=== PATIENT | male | born 1960 | race Caucasian/White ===

== ENCOUNTER 2016-05-25 13:39 | Outpatient (CLI) | payer MEDICAID, OTHER | END 2016-05-25 13:40 | disposition home or self-care (01) | DX: E11.9 Type 2 diabetes mellitus without complications (principal) ==

== ENCOUNTER 2016-09-07 23:17 | Outpatient (CLI) | payer MEDICAID | END 2016-09-07 23:18 | disposition EMS.NT | LOC: EMS 23:17 | PROVIDERS: ATTEND Surgery | DX: S80.212A Abrasion, left knee, initial encounter (principal); W18.39XA Other fall on same level, initial encounter; Y93.01 Activity, walking, marching and hiking; Y92.008 Other place in unspecified non-institutional (private) residence as the place of occurrence of the external cause ==

== ENCOUNTER 2017-10-19 09:44 | Outpatient (CLI) | payer MEDICAID ==
[2017-10-19 17:45] LABS: BASOPHILS % (AUTO) 0.7 %; EOSINOPHILS # (AUTO) 0.1 10^3/uL (0.0-0.7); EOSINOPHILS % (AUTO) 2.5 %; HGB - HEMOGLOBIN 14.2 g/dL (14.0-18.0); LYMPHOCYTES # (AUTO) 1.5 10^3/uL (1.5-3.5); LYMPHOCYTES % (AUTO) 40.5 %; MEAN CORPUSCULAR HGB CONC 33.9 g/dL (32.0-36.0); MEAN CORPUSCULAR VOLUME 94.4 fL (80.0-94.0); MEAN PLATELET VOLUME 8.3 fL (7.4-11.4); MONOCYTES # (AUTO) 0.4 10^3/uL (0.0-1.0); MONOCYTES % (AUTO) 10.6 %; NEUTROPHILS # (AUTO) 1.7 10^3/uL (1.5-6.6); NEUTROPHILS % (AUTO) 45.7 %; PLT - PLATELET COUNT 220 10^3/uL (130-450); RED BLOOD COUNT 4.43 10^6/uL (4.70-6.10); RED CELL DISTRIBUTION WIDTH 13.5 % (12.0-15.0); WHITE BLOOD COUNT 3.7 x10^3/uL (4.8-10.8)
[2017-10-19 18:12] LABS: ALBUMIN 3.9 g/dL (3.2-5.5); ALBUMIN/GLOBULIN RATIO 1.1 (1.0-2.2); ALKALINE PHOSPHATASE 82 IU/L (42-121); ALT ALANINE AMINOTRANSFERASE 15 IU/L (10-60); AST ASPARTATE AMINOTRANSFERASE 19 IU/L (10-42); BILIRUBIN,TOTAL 0.9 mg/dL (0.2-1.0); BUN - BLOOD UREA NITROGEN 15 mg/dL (6-20); CALCIUM 9.2 mg/dL (8.5-10.3); CARBON DIOXIDE - CO2 28 mmol/L (21-32); CHLORIDE 97 mmol/L (101-111); CHOLESTEROL 286 mg/dL; CREATININE 0.7 mg/dL (0.6-1.2); GFR - MDRD 117 (>89); GLUCOSE 313 mg/dL (70-100); HDL CHOLESTEROL 57 mg/dL; LDL CHOLESTEROL,CALCULATED 190 mg/dL; LDL/HDL RATIO 3.3 (<3.6); SODIUM 132 mmol/L (135-145); TOTAL PROTEIN 7.5 g/dL (6.7-8.2); VLDL CHOLESTEROL 39 mg/dL
[2017-10-19 18:59] LABS: HB2 TOTAL 14.8 g/dL; HEMOGLOBIN A1C 1.61 g/dL; HEMOGLOBIN A1C % 12.1 % (4.6-6.2)
[2017-10-19 19:23] LABS: CRP - C-REACTIVE PROTEIN < 1.0 mg/dL (0-1.0)
== END 2017-10-19 09:45 | disposition home or self-care (01) ==
LOC: LAB.F 09:44
PROVIDERS: ATTEND Nurse Practitioner Family
DX: E11.9 Type 2 diabetes mellitus without complications (principal); L08.9 Local infection of the skin and subcutaneous tissue, unspecified
CPT/HCPCS: 36415; 80053; 80061; 82043; 83036; 83721; 85025; 85651; 86140

== ENCOUNTER 2018-07-04 10:14 | Emergency (ER) | payer OTHER, MEDICAID ==
[2018-07-04 10:34] VITALS: BP 217/113
[2018-07-04] MEDS ORDERED: IBUPROFEN 800 MG TABLET PO STA (11:26)
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
== END 2018-07-04 12:00 | disposition home or self-care (01) ==
LOC: ED 10:14
DX: S39.012A Strain of muscle, fascia and tendon of lower back, initial encounter (principal); V43.62XA Car passenger injured in collision with other type car in traffic accident, initial encounter; Y99.0 Civilian activity done for income or pay; I10 Essential (primary) hypertension; E11.9 Type 2 diabetes mellitus without complications
CPT/HCPCS: 99283; A9270; 1040M

== ENCOUNTER 2019-11-10 15:12 | Outpatient (CLI) | payer MEDICAID ==
[2019-11-10 20:07] LABS: BASOPHILS % (AUTO) 0.8 %; EOSINOPHILS % (AUTO) 0.3 %; HGB - HEMOGLOBIN 14.8 g/dL (14.0-18.0); LYMPHOCYTES # (AUTO) 1.4 10^3/uL (1.5-3.5); LYMPHOCYTES % (AUTO) 37.5 %; MEAN CORPUSCULAR HEMOGLOBIN 31.1 pg (27.0-31.0); MEAN CORPUSCULAR HGB CONC 33.2 g/dL (32.0-36.0); MEAN CORPUSCULAR VOLUME 93.7 fL (80.0-94.0); MEAN PLATELET VOLUME 10.1 fL (7.4-11.4); MONOCYTES # (AUTO) 0.4 10^3/uL (0.0-1.0); MONOCYTES % (AUTO) 11.1 %; NEUTROPHILS # (AUTO) 1.9 10^3/uL (1.5-6.6); PLT - PLATELET COUNT 218 10^3/uL (130-450); RED BLOOD COUNT 4.76 10^6/uL (4.70-6.10); RED CELL DISTRIBUTION WIDTH 12.4 % (12.0-15.0); WHITE BLOOD COUNT 3.8 x10^3/uL (4.8-10.8)
[2019-11-10 20:17] LABS: HEMOGLOBIN A1c% 10.8 % (4.27-6.07)
[2019-11-10 20:30] LABS: ALBUMIN 4.4 g/dL (3.2-5.5); ALBUMIN/GLOBULIN RATIO 1.3 (1.0-2.2); ALKALINE PHOSPHATASE 110 IU/L (42-121); ALT ALANINE AMINOTRANSFERASE 23 IU/L (10-60); AST ASPARTATE AMINOTRANSFERASE 22 IU/L (10-42); BILIRUBIN,TOTAL 0.6 mg/dL (0.2-1.0); BUN - BLOOD UREA NITROGEN 17 mg/dL (6-20); CALCIUM 9.7 mg/dL (8.5-10.3); CARBON DIOXIDE - CO2 26 mmol/L (21-32); CHLORIDE 97 mmol/L (101-111); CHOL/HDL RATIO 5.7 (<5.0); CHOLESTEROL 317 mg/dL; GLUCOSE 444 mg/dL (70-100); HDL CHOLESTEROL 56 mg/dL; LDL CHOLESTEROL,CALCULATED 194 mg/dL; LDL/HDL RATIO 3.5 (<3.6); SODIUM 132 mmol/L (135-145); TOTAL PROTEIN 7.8 g/dL (6.7-8.2); VLDL CHOLESTEROL 67 mg/dL
[2019-11-10 20:31] LABS: CREATININE,URINE 45.6 mg/dL; MICROALBUM/CREATININE RATIO,UR 111.8 ug/mg (<30.0); MICROALBUMIN,URINE 5.1 mg/dL (0-300.0)
== END 2019-11-10 15:13 | disposition home or self-care (01) ==
LOC: LAB.S 15:12
PROVIDERS: ATTEND Family Medicine
DX: I10 Essential (primary) hypertension (principal); E11.9 Type 2 diabetes mellitus without complications
CPT/HCPCS: 36415; 80053; 80061; 82043; 82570; 83036; 83721; 84443; 85025

== ENCOUNTER 2020-06-24 08:00 | Outpatient (CLI) | payer MEDICAID ==
[2020-06-24 20:07] LABS: BASOPHILS % (AUTO) 0.6 %; EOSINOPHILS # (AUTO) 0.1 10^3/uL (0.0-0.7); EOSINOPHILS % (AUTO) 1.1 %; HCT - HEMATOCRIT 41.4 % (42.0-52.0); HGB - HEMOGLOBIN 13.8 g/dL (14.0-18.0); LYMPHOCYTES # (AUTO) 1.8 10^3/uL (1.5-3.5); LYMPHOCYTES % (AUTO) 33.8 %; MEAN CORPUSCULAR HEMOGLOBIN 31.2 pg (27.0-31.0); MEAN CORPUSCULAR HGB CONC 33.3 g/dL (32.0-36.0); MEAN CORPUSCULAR VOLUME 93.7 fL (80.0-94.0); MEAN PLATELET VOLUME 9.9 fL (7.4-11.4); MONOCYTES # (AUTO) 0.6 10^3/uL (0.0-1.0); MONOCYTES % (AUTO) 10.4 %; NEUTROPHILS # (AUTO) 2.8 10^3/uL (1.5-6.6); NEUTROPHILS % (AUTO) 53.7 %; PLT - PLATELET COUNT 279 10^3/uL (130-450); RED BLOOD COUNT 4.42 10^6/uL (4.70-6.10); RED CELL DISTRIBUTION WIDTH 12.8 % (12.0-15.0); WHITE BLOOD COUNT 5.3 x10^3/uL (4.8-10.8)
[2020-06-24 20:31] LABS: CREATININE,URINE 56.5 mg/dL; MICROALBUM/CREATININE RATIO,UR 345.1 ug/mg (<30.0); MICROALBUMIN,URINE 19.5 mg/dL (0-300.0)
[2020-06-24 20:32] LABS: ALBUMIN 4.3 g/dL (3.2-5.5); ALBUMIN/GLOBULIN RATIO 1.2 (1.0-2.2); ALKALINE PHOSPHATASE 91 IU/L (42-121); ALT ALANINE AMINOTRANSFERASE 15 IU/L (10-60); AST ASPARTATE AMINOTRANSFERASE 16 IU/L (10-42); BILIRUBIN,TOTAL 0.7 mg/dL (0.2-1.0); BUN - BLOOD UREA NITROGEN 16 mg/dL (6-20); CALCIUM 9.4 mg/dL (8.5-10.3); CARBON DIOXIDE - CO2 25 mmol/L (21-32); CHLORIDE 100 mmol/L (101-111); CHOL/HDL RATIO 4.5 (<5.0); CHOLESTEROL 292 mg/dL; CREATININE 0.6 mg/dL (0.6-1.2); GFR - MDRD 138 (>89); GLUCOSE 268 mg/dL (70-100); HDL CHOLESTEROL 65 mg/dL; LDL CHOLESTEROL,CALCULATED 203 mg/dL; LDL/HDL RATIO 3.1 (<3.6); POTASSIUM 3.8 mmol/L (3.5-5.0); SODIUM 134 mmol/L (135-145); TRIGLYCERIDES 120 mg/dL; VLDL CHOLESTEROL 24 mg/dL
[2020-06-24 20:33] LABS: ESTIMATED AVERAGE GLUCOSE 258 mg/dL (70-100); HEMOGLOBIN A1c% 10.6 % (4.27-6.07)
[2020-06-24 20:42] LABS: THYROID STIMULATING HORMONE 1.74 uIU/mL (0.34-5.60)
[2020-06-24 20:53] LABS: FOLATE 10.58 ng/mL (5.90 - >24.8)
== END 2020-06-24 23:59 | disposition home or self-care (01) ==
LOC: LAB.S 08:00
PROVIDERS: ATTEND Physician Assistant Medical
DX: I10 Essential (primary) hypertension (principal); E78.5 Hyperlipidemia, unspecified; E11.9 Type 2 diabetes mellitus without complications; F10.10 Alcohol abuse, uncomplicated; Z12.5 Encounter for screening for malignant neoplasm of prostate; R53.83 Other fatigue; H53.9 Unspecified visual disturbance
CPT/HCPCS: 36415; 80053; 80061; 82043; 82570; 82607; 82746; 83036; 83721; 84153; 84443; 85025

== ENCOUNTER 2020-06-24 08:00 | Outpatient (CLI) | payer MEDICAID ==
--- NOTE | 2020-06-24 17:17 | XRAY Report ---
PROCEDURE: Chest 2 View X-Ray INDICATIONS: COUGH TECHNIQUE: 2 view(s) of the chest. COMPARISON: None. FINDINGS: Surgical changes and devices: None. Lungs and pleura: No pleural effusions or pneumothorax. Lungs are clear. Mediastinum: Mediastinal contours are normal. Heart size is normal. Bones and chest wall: No suspicious bony abnormalities. Soft tissues appear unremarkable. IMPRESSION: Normal for age, source of current symptoms is not seen. Reviewed by: Adelso Graham MD on 06/24/2020 5:16 PM PDT Approved by: Adelso Graham MD on 06/24/2020 5:16 PM PDT Station ID: [id number]
== END 2020-06-24 23:59 | disposition home or self-care (01) ==
LOC: DI.S 08:00
PROVIDERS: ATTEND Physician Assistant Medical
DX: R05 Cough (principal); I10 Essential (primary) hypertension; E78.5 Hyperlipidemia, unspecified; E11.9 Type 2 diabetes mellitus without complications; F10.10 Alcohol abuse, uncomplicated; R53.83 Other fatigue; H53.9 Unspecified visual disturbance
CPT/HCPCS: 36415; 80053; 80061; 82043; 82570; 82607; 82746; 83036; 83721; 84153; 84443; 85025

== ENCOUNTER 2020-07-26 13:32 | Outpatient (CLI) | payer MEDICAID ==
[2020-07-26 21:11] LABS: ESTIMATED AVERAGE GLUCOSE 255 mg/dL (70-100); HEMOGLOBIN A1c% 10.5 % (4.27-6.07)
== END 2020-07-26 13:33 | disposition home or self-care (01) ==
LOC: LAB.S 13:32
PROVIDERS: ATTEND Physician Assistant
DX: Z01.812 Encounter for preprocedural laboratory examination (principal); R53.83 Other fatigue; E78.5 Hyperlipidemia, unspecified; E11.9 Type 2 diabetes mellitus without complications
CPT/HCPCS: 36415; 83036

== ENCOUNTER 2022-12-16 12:36 | Outpatient (CLI) | payer MEDICAID | END 2022-12-16 23:59 | disposition critical access hospital (66) | LOC: EMS 12:36 | DX: E11.65 Type 2 diabetes mellitus with hyperglycemia (principal); R10.84 Generalized abdominal pain; R11.2 Nausea with vomiting, unspecified; I48.91 Unspecified atrial fibrillation | CPT/HCPCS: A0425; A0427; A0999 ==

== ENCOUNTER 2022-12-16 13:17 | Inpatient (IN) | payer MEDICAID ==
[2022-12-16] MEDS ORDERED: SODIUM CHLORIDE 0.9% 1,000 ML IV STA ×4 (13:35→15:51)
[2022-12-16 13:48] LABS: BASOPHILS % (AUTO) 0.2 %; HCT - HEMATOCRIT 40.2 % (42.0-52.0); HGB - HEMOGLOBIN 13.9 g/dL (14.0-18.0); LYMPHOCYTES % (AUTO) 8.3 %; MEAN CORPUSCULAR HEMOGLOBIN 31.7 pg (27.0-31.0); MEAN CORPUSCULAR HGB CONC 34.6 g/dL (32.0-36.0); MEAN CORPUSCULAR VOLUME 91.6 fL (80.0-94.0); MEAN PLATELET VOLUME 9.2 fL (7.4-11.4); MONOCYTES # (AUTO) 0.9 10^3/uL (0.0-1.0); MONOCYTES % (AUTO) 8.1 %; NEUTROPHILS # (AUTO) 9.6 10^3/uL (1.5-6.6); NEUTROPHILS % (AUTO) 83.1 %; PLT - PLATELET COUNT 269 10^3/uL (130-450); RED BLOOD COUNT 4.39 10^6/uL (4.70-6.10); RED CELL DISTRIBUTION WIDTH 12.7 % (12.0-15.0); WHITE BLOOD COUNT 11.6 x10^3/uL (4.8-10.8)
[2022-12-16 13:50] LABS: VBG BASE EXCESS -0.5 mmol/L (-2 - +2); VBG HCO3 23.9 mmol/L (23-28); VBG PCO2 38.7 mmHg (41-51); VBG PH 7.409 (7.31-7.41); VBG PO2 39.9 mmHg (25-47); VBG TOTAL CO2 25.1 mmol/L (24-29)
[2022-12-16 13:51] LABS: VBG OXYGEN SATURATION 75.9 % (60-80)
--- NOTE | 2022-12-16 13:57 | ED Physician Documentation ---
PD HPI ABD PAIN - Stated complaint Stated Complaint: ABD PX - Chief complaint Chief Complaint: Abd Pain - History obtained from History obtained from: Patient - History of Present Illness Timing - onset: How many days ago (several days to a week of worse pain esophageal and stomach area with intake. Having vomiting coffee ground material 1-2 days. General weakness.) Timing - duration: Days, Months (he has had some element of gastric pain with eating for months.) Timing - details: Gradual onset, Still present Quality: Cramping, Aching, Pain Location: Epigastric Radiation: Upper back Improved by: No: Eating, Vomiting, Meds (antacid) Worsened by: Eating, Palpation. No: Breathing Associated symptoms: Nausea, Vomiting, Hematemesis (coffee ground), Chest pain (lower substernal). No: Fever, Dysuria, Hematuria Similar symptoms before: Has not had sx before Recently seen: Not recently seen Review of Systems Constitutional: denies: Fever, Chills Nose: denies: Rhinorrhea / runny nose, Congestion Throat: denies: Sore throat Cardiac: reports: Chest pain / pressure. denies: Palpitations (even in the ER with rapid atrial fib, he does not have feeling of fast heart rate.) Respiratory: denies: Cough GI: reports: Abdominal Pain (upper), Nausea, Vomiting, Hematemesis. denies: Abdominal Swelling, Bloody / black stool : denies: Dysuria, Frequency PD PAST MEDICAL HISTORY - Past Medical History Endocrine/Autoimmune: Type 2 diabetes - Past Surgical History Past Surgical History: No - Present Medications Home Medications: Ambulatory Orders Medication Instructions Recorded Confirmed Losartan/Hydrochlorothiazide 1 each PO DAILY 12/17/22 12/17/22 [Losartan-Hctz 100-12.5 mg Tab] Metformin HCl [Metformin ER 1,000 mg PO DAILY 12/17/22 12/17/22 Osmotic] Prednisolone Acetate [Pred Mild] 1 drops .ROUTE TID 12/17/22 12/17/22 - Allergies Allergies/Adverse Reactions: Allergies Allergy/AdvReac Type Severity Reaction Status Date / Time No Known Drug Allergies Allergy Verified 07/04/18 10:29 - Living Situation Living Situation: reports: Alone Living Arrangement: reports: At home - Social History Does the pt smoke?: No Smoking Status: Never smoker Does the pt drink ETOH?: Yes ETOH Use: Beer (5-6 daily along with rum regularly) Does the pt have substance abuse?: No - Immunizations Immunizations are current?: Yes PD ED PE NORMAL - Vitals Vital signs reviewed: Yes - General General: Alert and oriented X 3, Well developed/nourished, Other (appears in pain and with ememsis in ER of coffeeground watery fluid. No red blood. ) - HEENT HEENT: Pharynx benign - Neck Neck: Supple, no meningeal sign, No adenopathy - Cardiac Cardiac: RRR (initially normal but went into rapid tachycardia early in ER stay. ), No murmur - Respiratory Respiratory: Clear bilaterally - Abdomen Abdomen: Normal bowel sounds, Non distended, Other (tender with guarding epigastric area. NO distension. SOme percussion and rebound in upper abd. Lower not tender. ) - Rectal Rectal: Deferred - Back Back: No CVA TTP - Derm Derm: Normal color, Warm and dry - Extremities Extremities: Normal ROM s pain, No edema, No calf tenderness / cord Results - Vitals Vitals: Vital Signs - 24 hr 12/16/22 12/16/22 12/16/22 13:24 14:46 14:47 Temperature 36.3 C L Heart Rate 92 152 H 145 H Respiratory 16 18 18 Rate Blood Pressure 154/88 H 110/69 140/70 H O2 Saturation 97 99 98 12/16/22 12/16/22 12/16/22 15:51 16:07 17:00 Temperature Heart Rate 77 76 78 Respiratory 18 18 19 Rate Blood Pressure 126/76 126/76 126/75 O2 Saturation 98 100 99 12/16/22 12/16/22 17:30 18:00 Temperature Heart Rate 80 77 Respiratory 20 19 Rate Blood Pressure 136/60 H 121/68 O2 Saturation 100 100 Oxygen O2 Source Room air - EKG (time done) 13:22 EKG releavant findings:: EKG personally interpreted by author of this note. Relevant findings are: Rate: Rate (enter#) (129) Rhythm: Sinus tachycardia (with PVCs) Garrison: Normal Intervals: Normal VT QRS: Normal Ischemia: Normal ST segments. No: ST elevation c/w ischemia, ST depression 13:33 EKG releavant findings:: EKG personally interpreted by author of this note. Relevant findings are: Rate: Rate (enter#) (156) Rhythm: Atrial fibrillation Ischemia: Normal ST segments, Non specific changes. No: ST elevation c/w ischemia, ST depression Compare to prior EKG: Changed from prior EKG - Labs Labs: Laboratory Tests 12/16/22 12/16/22 12/16/22 13:31 13:42 13:42 WBC 11.6 H RBC 4.39 L Hgb 13.9 L Hct 40.2 L MCV 91.6 MCH 31.7 H MCHC 34.6 RDW 12.7 Plt Count 269 MPV 9.2 Neut # (Auto) 9.6 H Lymph # (Auto) 1.0 L Yell # (Auto) 0.9 Eos # (Auto) 0.0 Baso # (Auto) 0.0 Absolute Nucleated RBC 0.00 Nucleated RBC % 0.0 PT 12.5 INR 1.1 APTT 25.2 VBG pH VBG pCO2 VBG pO2 VBG HCO3 VBG Total CO2 VBG O2 Saturation VBG Base Excess Sodium Potassium Chloride Carbon Dioxide Anion Gap BUN Creatinine Estimated GFR (MDRD) Glucose POC Whole Bld Glucose 495 H Estimat Average Glucose Hemoglobin A1c % Calcium Magnesium Total Bilirubin AST ALT Alkaline Phosphatase Troponin I High Sens B-Natriuretic Peptide Total Protein Albumin Globulin Albumin/Globulin Ratio Lipase Urine Color Urine Clarity Urine pH Ur Specific Edison Urine Protein Urine Glucose (UA) Urine Ketones Urine Occult Blood Urine Nitrite Urine Bilirubin Urine Urobilinogen Ur Leukocyte Esterase Ur Microscopic Review Urine Culture Comments Urine Opiates Screen Ur Oxycodone Screen Urine Methadone Screen Ur Propoxyphene Screen Ur Barbiturates Screen Ur Tricyclics Screen Ur Phencyclidine Scrn Ur Amphetamine Screen U Methamphetamines Scrn U Benzodiazepines Scrn Urine Cocaine Screen U Cannabinoids Screen Ethyl Alcohol Serum Ketones 12/16/22 12/16/22 12/16/22 13:42 13:42 13:45 WBC RBC Hgb Hct MCV MCH MCHC RDW Plt Count MPV Neut # (Auto) Lymph # (Auto) Yell # (Auto) Eos # (Auto) Baso # (Auto) Absolute Nucleated RBC Nucleated RBC % PT INR APTT VBG pH 7.409 VBG pCO2 38.7 L VBG pO2 39.9 VBG HCO3 23.9 VBG Total CO2 25.1 VBG O2 Saturation 75.9 VBG Base Excess -0.5 Sodium 135 Potassium 4.0 Chloride 92 L Carbon Dioxide 26 Anion Gap 17.0 H BUN 39 H Creatinine 1.0 Estimated GFR (MDRD) 76 L Glucose 514 H* POC Whole Bld Glucose Estimat Average Glucose Hemoglobin A1c % Calcium 9.7 Magnesium Total Bilirubin 0.7 AST 11 ALT 8 L Alkaline Phosphatase 110 Troponin I High Sens B-Natriuretic Peptide 80 Total Protein 7.5 Albumin 4.1 Globulin 3.4 Albumin/Globulin Ratio 1.2 Lipase 10 L Urine Color Urine Clarity Urine pH Ur Specific Edison Urine Protein Urine Glucose (UA) Urine Ketones Urine Occult Blood Urine Nitrite Urine Bilirubin Urine Urobilinogen Ur Leukocyte Esterase Ur Microscopic Review Urine Culture Comments Urine Opiates Screen Ur Oxycodone Screen Urine Methadone Screen Ur Propoxyphene Screen Ur Barbiturates Screen Ur Tricyclics Screen Ur Phencyclidine Scrn Ur Amphetamine Screen U Methamphetamines Scrn U Benzodiazepines Scrn Urine Cocaine Screen U Cannabinoids Screen Ethyl Alcohol < 10.0 Serum Ketones SMALL H 12/16/22 12/16/22 12/16/22 13:45 16:01 16:06 WBC RBC Hgb Hct MCV MCH MCHC RDW Plt Count MPV Neut # (Auto) Lymph # (Auto) Yell # (Auto) Eos # (Auto) Baso # (Auto) Absolute Nucleated RBC Nucleated RBC % PT INR APTT VBG pH VBG pCO2 VBG pO2 VBG HCO3 VBG Total CO2 VBG O2 Saturation VBG Base Excess Sodium Potassium Chloride Carbon Dioxide Anion Gap BUN Creatinine Estimated GFR (MDRD) Glucose POC Whole Bld Glucose 394 H Estimat Average Glucose Hemoglobin A1c % Calcium Magnesium 2.2 Total Bilirubin AST ALT Alkaline Phosphatase Troponin I High Sens 12.4 B-Natriuretic Peptide Total Protein Albumin Globulin Albumin/Globulin Ratio Lipase Urine Color YELLOW Urine Clarity CLEAR Urine pH 5.5 Ur Specific Edison 1.010 Urine Protein NEGATIVE Urine Glucose (UA) >=1000 H Urine Ketones >=80 H Urine Occult Blood TRACE-INTA Urine Nitrite NEGATIVE Urine Bilirubin NEGATIVE Urine Urobilinogen 0.2 (NORMAL) Ur Leukocyte Esterase NEGATIVE Ur Microscopic Review NOT INDICATED Urine Culture Comments NOT INDICATED Urine Opiates Screen NEGATIVE Ur Oxycodone Screen NEGATIVE Urine Methadone Screen NEGATIVE Ur Propoxyphene Screen NEGATIVE Ur Barbiturates Screen NEGATIVE Ur Tricyclics Screen NEGATIVE Ur Phencyclidine Scrn NEGATIVE Ur Amphetamine Screen NEGATIVE U Methamphetamines Scrn NEGATIVE U Benzodiazepines Scrn NEGATIVE Urine Cocaine Screen NEGATIVE U Cannabinoids Screen NEGATIVE Ethyl Alcohol Serum Ketones 12/16/22 18:08 WBC RBC Hgb Hct MCV MCH MCHC RDW Plt Count MPV Neut # (Auto) Lymph # (Auto) Yell # (Auto) Eos # (Auto) Baso # (Auto) Absolute Nucleated RBC Nucleated RBC % PT INR APTT VBG pH VBG pCO2 VBG pO2 VBG HCO3 VBG Total CO2 VBG O2 Saturation VBG Base Excess Sodium Potassium Chloride Carbon Dioxide Anion Gap BUN Creatinine Estimated GFR (MDRD) Glucose POC Whole Bld Glucose Estimat Average Glucose 318 H Hemoglobin A1c % 12.7 H Calcium Magnesium Total Bilirubin AST ALT Alkaline Phosphatase Troponin I High Sens B-Natriuretic Peptide Total Protein Albumin Globulin Albumin/Globulin Ratio Lipase Urine Color Urine Clarity Urine pH Ur Specific Edison Urine Protein Urine Glucose (UA) Urine Ketones Urine Occult Blood Urine Nitrite Urine Bilirubin Urine Urobilinogen Ur Leukocyte Esterase Ur Microscopic Review Urine Culture Comments Urine Opiates Screen Ur Oxycodone Screen Urine Methadone Screen Ur Propoxyphene Screen Ur Barbiturates Screen Ur Tricyclics Screen Ur Phencyclidine Scrn Ur Amphetamine Screen U Methamphetamines Scrn U Benzodiazepines Scrn Urine Cocaine Screen U Cannabinoids Screen Ethyl Alcohol Serum Ketones - Rads (name of study) chest xray Relevant Findings:: Prelim report reviewed, EMP independent interpretation of test (no acute findings) abd/pelvic CT Relevant Findings:: Prelim report reviewed (inflammation distal esophagus and gastric lining. Pancreas normal. Normal liver. ), EMP independent interpretation of test PD Medical Decision Making - ED course Complexity details: reviewed results, re-evaluated patient, considered differential (upper abd pain with history of regular alcohol use. No hstior of liver disease but not evaluatted/seen by providers regularly. No history of diabetes nor heart problems/irregular heart rate. Has multiple newly identified processes here (atrial fib, diabetes, gastritis).), d/w patient, d/w device sales consultant (talked with Dr. Saucedo, contact lens edge buffer for surgery, who can consult if needed by Hospitalist. Would consider EGD appropriate. Talked with Hospitalist who will admit the patient. ) Social Determinants of Health: does not seek regular health care. History of regular alcohol use so presume will have some withdarwal. Consider some of the nasuea, tachycardia, abd pain augmented by withdrawaal as well, so treated with ativan as well as pain meds and antiemetics. Drug Therapy Requiring Monitoring for Toxicity: IV fluids, antiemetics and particularly IV diltiazem for tachyarrhythmia. Monitoring of heart rate and BP response in light of vomiting and likely dehydration concurrently. ED course: The patient presented with upper abdominal pain for several weeks that has increased over the last few days and now vomiting with any attempted oral intake the last day or 2. Has noted coffee-ground material. No bright red blood. History of regular alcohol use with 5-6 beers and some rum daily. No history of liver disease jaundice nor pancreatitis. No history of coronary disease no irregular heartbeats that he is aware. He denies diabetes. Here in the ER his initial vital signs show tachycardia with PVCs but then soon after into the department he was noted to go to a fast regular rhythm approximately 1 50-1 60 consistent with atrial fibrillation. He did not have any chest discomfort with it and did not feel any palpitations. Blood pressure was good. With I therefore felt slowing it with medication would be appropriate first try. Concern was with the emesis and some coffee-ground material. He was given Protonix and famotidine IV as well as some IV fluids and ondansetron. He was given diltiazem IV with slowing of the heart rate and subsequent converted back to sinus rhythm with that. His blood count was pretty good with a hemoglobin of 13. Lipase was only 10. LFTs were normal. No signs of pancreatitis. He subsequently did have a CT scan to evaluate the abdomen. It did show esophagitis and gastritis. No free air no free fluid. No signs of pancreatitis nor cirrhosis. A chest x-ray also was done which did not show any infiltrates. No signs of congestive failure with a fairly normal BNP and a negative troponin. His blood sugar was elevated at approximately 500s and on blood test he did have ketones but his pH on venous blood gas was good at 7.40. Again no history of diabetes. The patient did have a decrease in his emesis and was not vomiting anymore. He took sips of water without any emesis but it did cause pain significantly. I think he will not be able to maintain his oral intake and hydration and will likely have ongoing problems plus he does have evidence for some gastric bleeding with coffee-ground emesis. I think he needs evaluating for withdrawal as well as ongoing pain and the ability to maintain hydration orally. He also has apparent new onset diabetes. His blood sugar decreased to 360 with IV fluids. We can give a single bolus dose of insulin. He is not ketotic versus correction he is not acidotic and only small ketones so I did not see need to start an insulin drip at this time. Bolus dosing seems like it can be appropriate. I did talk with the hospitalist who agreed to admit the patient to the hospital. At time of admission he is stable without vomiting, good vital signs, getting IV fluids, resting. Heart rhythm sinus below 100 rate. - Critical Care Time(min): 45 Comments: newly diagnosed diabetes with ketosis. Paroxysmal atrial fib requiring IV medications for treatment. Acute gastritis in alcoholic with early withdrawal. Multiple medical issues concurrent. Time Includes: Direct patient care, Reassess patient, Document care, Coordinate care, Medical consult Procedures excluded from critical care time: EKG Departure - Departure Disposition: 66 [facility] DC/Xfer Clinical Impression: Diabetes mellitus, new onset, Nausea and vomiting, Alcohol use disorder, Paroxysmal atrial fibrillation, Upper abdominal pain, Left kidney mass Acute gastritis Qualifiers: Gastritis type: alcoholic Condition: Stable Record reviewed to determine appropriate education?: Yes Discharge Date/Time: 12/16/22 19:20
[2022-12-16 13:58] LABS: KETONES, SERUM (ACETEST) SMALL (NEGATIVE)
[2022-12-16 14:02] LABS: PARTIAL THROMBOPLASTIN TIME 25.2 secs (24.9-33.3)
[2022-12-16 14:06] LABS: ALBUMIN 4.1 g/dL (3.2-5.5); ETOH - ETHANOL < 10.0 mg/dL; INR 1.1 (0.8-1.2); LIPASE 10 U/L (11-82); PT - PROTHROMBIN TIME 12.5 secs (9.9-12.6)
[2022-12-16] MEDS ORDERED: diltiaZEM INJ 5 MG/ML VIAL IVP STA ×2 (14:16→15:05)
[2022-12-16] MEDS ORDERED: FAMOTIDINE 20 MG/2 ML VIAL IVP STA (14:17)
[2022-12-16] MEDS ORDERED: ONDANSETRON 4 MG/2 ML VIAL IVP STA (14:17)
[2022-12-16 14:19] LABS: ALBUMIN/GLOBULIN RATIO 1.2 (1.0-2.2); ALKALINE PHOSPHATASE 110 IU/L (42-121); ALT ALANINE AMINOTRANSFERASE 8 IU/L (10-60); AST ASPARTATE AMINOTRANSFERASE 11 IU/L (10-42); BILIRUBIN,TOTAL 0.7 mg/dL (0.2-1.0); BUN - BLOOD UREA NITROGEN 39 mg/dL (6-20); CALCIUM 9.7 mg/dL (8.5-10.3); CARBON DIOXIDE - CO2 26 mmol/L (21-32); CHLORIDE 92 mmol/L (101-111); GFR - MDRD 76 (>89); GLUCOSE 514 mg/dL (74-104); SODIUM 135 mmol/L (135-145); TOTAL PROTEIN 7.5 g/dL (6.4-8.9)
--- NOTE | 2022-12-16 14:45 | XRAY Report ---
PROCEDURE: Chest 1 View X-Ray INDICATIONS: chest pain TECHNIQUE: One view of the chest was acquired. COMPARISON: Chest x-ray 06/24/2020. FINDINGS: Surgical changes and devices: None. Lungs and pleura: No pleural effusions or pneumothorax. Lungs are clear. Mediastinum: Mediastinal contours appear normal. Heart size is normal. Bones and chest wall: No suspicious bony lesions. Overlying soft tissues appear unremarkable. IMPRESSION: No acute cardiopulmonary process. Reviewed by: Bharat Landaverde MD on 12/16/2022 2:44 PM PDT Approved by: Bharat Landaverde MD on 12/16/2022 2:44 PM PDT Station ID: [id number]
[2022-12-16 14:47] LABS: MAGNESIUM 2.2 mg/dL (1.7-2.3); TROPONIN I HIGH SENSITIVITY 12.4 ng/L (2.3-19.7)
--- OUTSIDE RECORDS SUMMARY | 2022-12-16 14:49 | EXTERNAL MEDICAL SUMMARY RPT | Continuity of Care Document ---
Author Name Unknown Address [address] [place] [address] Phone Organization [facility] Address [address] [place] [address] Phone Care Team Providers Care Geology Technician Name Role Phone Unavailable Unavailable Unavailable Latrice, Provider Unavailable Unavailable Problems date description facility 2022-12-16 00:00 Gambling [facility] 2022-12-16 00:00 Diabetes mellitus wi thout mention of complication, type II or unspecified type, not stated as uncontrolled [facility] 2022-12-16 00:00 Depressive disorder, not elsewhere classified [facility] 2022-12-16 00:00 Depressive disorder [facility] 2022-12-16 00:00 History of alcohol abuse [facility] 2022-12-16 00:00 Type 2 diabetes mellitus [facility] 2022-12-16 00:00 Type 2 diabetes james itus without complications [facility] 2022-12-16 00:00 Major depressive dis order, single episode, unspecified [facility] 2022-12-16 00:00 Personal history of alcoholism [facility] 2022-12-16 00:00 Gambling and betting [facility] 2022-12-16 00:00 Personal history of other mental and behavioral disorders [facility] [place] Results/Labs test date facility value unit notes Social History date description facility
[2022-12-16] MEDS ORDERED: LORazepam 2 MG/ML VIAL IVP STA (15:05)
[2022-12-16] MEDS ORDERED: iohexoL-300 100 ML VIAL IVP ONE (15:53)
[2022-12-16 16:24] LABS: MUDS CUTOFF CONCENTRATIONS CUTOFF CONC BELOW:
[2022-12-16 16:27] LABS: BILIRUBIN,URINE NEGATIVE (NEGATIVE); GLUCOSE, URINE (UA) >=1000 mg/dL (NEGATIVE); KETONES,URINE (UA) >=80 mg/dL (NEGATIVE); LEUKOCYTE ESTERASE, URINE NEGATIVE (NEGATIVE); NITRITE,URINE NEGATIVE (NEGATIVE); OCCULT BLOOD,URINE TRACE-INTA (NEGATIVE); PH,URINE 5.5 PH (5.0-7.5); PROTEIN,URINE NEGATIVE (NEGATIVE); UROBILINOGEN,URINE 0.2 (NORMAL) E.U./dL (NORMAL)
[2022-12-16 16:28] LABS: CLARITY,URINE CLEAR (CLEAR)
[2022-12-16 16:37] LABS: AMPHETAMINE SCREEN,URINE NEGATIVE (NEGATIVE); BARBITURATE SCREEN,UR NEGATIVE (NEGATIVE); BENZODIAZEPINES SCREEN, URINE NEGATIVE (NEGATIVE); COCAINE SCREEN URINE NEGATIVE (NEGATIVE); METHADONE SCREEN, URINE NEGATIVE (NEGATIVE); METHAMPHETAMINES SCREEN, URINE NEGATIVE (NEGATIVE); OPIATE SCREEN, URINE NEGATIVE (NEGATIVE); OXYCODONE SCREEN, URINE NEGATIVE (NEGATIVE); PROPOXYPHENE SCREEN, URINE NEGATIVE (NEGATIVE); THC CANNABINOID SCREEN, URINE NEGATIVE (NEGATIVE); TRICYCLIC ANTIDEPRESSANT,URINE NEGATIVE (NEGATIVE)
--- NOTE | 2022-12-16 16:48 | CT Report ---
PROCEDURE: ABDOMEN/PELVIS W INDICATIONS: upper abd pain for weeks, worsening CONTRAST: 100mL Omni 300 TECHNIQUE: After the administration of intravenous contrast, 5 mm thick sections acquired from the diaphragms to the symphysis. 5 mm thick coronal and sagittal reformats were acquired. For radiation dose reducti on, the following was used: automated exposure control, adjustment of mA and/or kV according to donald ent size. COMPARISON: None FINDINGS: Image quality: Excellent. Lung bases and heart: The lung bases are unremarkable. Mild coronary calcifications. Patulous distal esophagus with small fluid and wall thickening. Liver: No solid mass. Gallbladder and biliary tree: No radiopaque stones or wall thickening. No biliary dilation. Spleen: No splenomegaly. Pancreas: No pancreatic ductal dilation. Adrenals: No adrenal nodule. Kidneys and ureters: No hydronephrosis. No renal cystic lesion which requires follow up. There is a 1 .5 cm soft tissue attenuation nodule at the superior pole of the left kidney.. Bowel and peritoneum: Small hiatal hernia. The stomach is distended. No bowel distension. No patholog ic free fluid. Lymph nodes: No central or retroperitoneal adenopathy. Vessels: No infrarenal aortic aneurysm. Atherosclerotic vascular calcifications. PELVIS Reproductive organs: Unremarkable. Bladder: No abnormal wall thickening. The urinary bladder is distended. Pelvic lymph nodes: No pelvic adenopathy by size criteria. Bones: No aggressive osseous abnormality. Degenerative changes of the spine. Other: Left inguinal hernia with soft tissue attenuation, possibly left testicle within the inguinal hernia.. IMPRESSION: 1.Patulous distal esophagus with small fluid and wall thickening, correlate for esophagitis. 2.The stomach is distended, nonspecific and may be related to gastritis, gastric obstruction is thoug ht to be less likely. 3.There is a 1.5 cm soft tissue attenuation lesion at the superior pole the left kidney, malignancy i s not excluded. Recommend nonemergent ultrasound or renal protocol CT or MRI for further evaluation. 4.Left renal hernia with soft tissue attenuation, possibly representing the left testicle within ingu inal hernia. Recommend correlation with physical exam. Scrotal ultrasound can be obtained for further evaluation if clinically indicated. Reviewed by: Bharat Landaverde MD on 12/16/2022 4:47 PM PDT Approved by: Bharat Landaverde MD on 12/16/2022 4:47 PM PDT Station ID: [id number]
[2022-12-16] MEDS ORDERED: INSULIN REGULAR HUMAN 300 UNIT/3 ML VIAL IVP STA (17:41)
[2022-12-16] MEDS ORDERED: PANTOPRAZOLE 40 MG VIAL IVP STA (17:45)
[2022-12-16] MEDS ORDERED: HYDROmorphone 0.5 MG/0.5 ML SYRINGE IVP PRN (18:26)
[2022-12-16] MEDS ORDERED: LORazepam 2 MG/ML VIAL IVP PRN (18:33)
--- NOTE | 2022-12-16 18:41 | HISTORY & PHYSICAL EXAMINATION ---
Chief Complaint - Chief Complaint Chief Complaint: abd pain 2 weeks, N/V 2 days History of Present Illness - Admitted From Admitted From:: ED - History Obtained From History obtained from: ED provider and the patient - History of Present Illness HPI Comment/Other: This is a 62-year-old male of background who states he takes no meds, has a history of alcohol abuse; he admits to drinking 6 beers/day and 3-4 rum and Coke drinks per day. He presented to the ER today with complaints of 2 weeks of vague abdominal pain, worse with eating, then 2 days of nausea and v omiting and no liquids would stay down today. He reported occasional coffee ground emesis these past 2 days and then had witnessed coffee-ground emesis in the ER. He underwent CT of the abdomen pelvis that showed inflammation of the distal esophagus and gastritis present, no evidence of esophageal varices. His initial heart rhythm was sinus with monomorphic, non-sustained VTach (4-beats) and then he went into atrial flutter at a rate of 160. He was given diltiazem push and converted back to sinus rhythm. His labs were remarkable for a serum glucose of 514, which is new onset of diabetes mellitus. He has a normal serum pH of 7.49, but small serum ketones present. Lipase 10. Normal transaminases and INR and MCV. Hgb 13.9. Troponin 12.4. The patient was given IV insulin and the next glucose came down to 394. The description of the pancreas on the abdominal CT image was unremarkable, with no phlegmon, necrosis or pancreatitis. The ED provider spoke to me about this patient. He will be admitted to the ICU in critical condition. History - Past Medical History Cardiovascular: reports: None Respiratory: reports: None Neuro: reports: None Endocrine/Autoimmune: reports: None GI: reports: None AERODYNAMICS PROFESSOR: reports: None : reports: None HEENT: reports: Chronic vision loss (Had several "eye surgeries".) Psych: reports: None Musculoskeletal: reports: None Derm: reports: None - Family & Social History Family History Comment/Other: He has no natural children. Living arrangement: At home Living Situation: With friend(s) Social History Notes: He lives with an elderly female who is 82, she is his friend not his relative. The patient used to work at the [employer]. He can no longer drive because of poor eyesight. He never smoked. He drinks alcohol daily: 6 beers per day and 4 rum and Coke cocktails per day. He has possibly had alcohol withdrawal at home in the past. - Substance History Use: Uses substance without health or social issues: Alcohol - POLST Patient has POLST: No Meds/Allgy - Home Medications Home Medications: Ambulatory Orders Medication Instructions Recorded Confirmed Losartan/Hydrochlorothiazide 1 each PO DAILY 12/17/22 12/17/22 [Losartan-Hctz 100-12.5 mg Tab] Metformin HCl [Metformin ER 1,000 mg PO DAILY 12/17/22 12/17/22 Osmotic] Prednisolone Acetate [Pred Mild] 1 drops .ROUTE TID 12/17/22 12/17/22 - Allergies Allergies/Adverse Reactions: Allergies Allergy/AdvReac Type Severity Reaction Status Date / Time No Known Drug Allergies Allergy Verified 07/04/18 10:29 Review of Systems - Constitutional Constitutional: reports: Other (He denies taking any meds) - Eyes Eyes: reports: Vision loss - Gastrointestinal Gastrointestinal: reports: Abdominal pain, Nausea, Vomiting, Coffee grounds emesis - Endocrine Endocrine: reports: Other (Stated he is "surprised he has Diabetes".) - All Other Systems All Other Systems: reports: Reviewed and negative, Other (Hiccups) Exam - Vital Signs Reviewed Vital Signs: Yes Vital Signs: Vital Signs x48h Temp Pulse Resp BP Pulse Ox 12/16/22 17:00 78 19 126/75 19 L 12/16/22 16:07 76 18 126/76 100 12/16/22 15:51 77 18 126/76 98 12/16/22 14:47 145 H 18 140/70 H 98 12/16/22 14:46 152 H 18 110/69 99 12/16/22 13:24 36.3 C L 92 16 154/88 H 97 - Physical Exam General Appearance: positive: Moderate distress (from hiccups), Other (Disheveled.) Eyes Bilateral: positive: Normal inspection, EOMI, Other (No icterus) ENT: positive: Dry mucous membranes, Other (Poor dentition: many missing front t eeth. Bloody emesis dried, seenon lips and L cheek.) Neck: positive: Nml inspection, No JVD Respiratory: positive: No respiratory distress, Breath sounds nml Cardiovascular: positive: Regular rate & rhythm, No murmur Abdomen: positive: Non-tender, Nml bowel sounds, No distention Skin: positive: Warm, Dry, Other ((+) skin tenting) Extremities: positive: Non-tender, No pedal edema, Other (Dirt under fingernails) Neurologic/Psychiatric: positive: Oriented x3, Motor nml, Other (No tremor, no nystagmus) Conclusion/Plan - Problem List (1) DKA (diabetic ketoacidosis) Conclusion/Plan: GlucoseHe presents with over 500 and serum ketones present but he is not acidotic. He has a normal lipase level and a normal-appearing pancreas by CT imaging. Plan: Admit to the ICU and start DKA protocol Start insulin drip Follow his ketones until they are negative Start normal saline, changing to IV fluids with D5 when glucose is under 200 (2) Acute gastritis Conclusion/Plan: Likely related to his alcohol abuse Plan: Start the patient on Protonix 40 mg IV twice daily Start oral Carafate 4 times daily Follow his hemoglobin daily or every 12 hours Transfuse if hemoglobin under 7 Qualifiers: Gastritis type: alcoholic (3) UGI bleed Conclusion/Plan: As in #2 (4) Alcohol abuse Conclusion/Plan: The patient stated he drinks 6 beers a day plus several shots of rum. His liver function tests show normal LFTs, MCV and INR. Plan: Begin the patient on high-dose ICU-protocol CIWA scoring with as needed Ativan Begin IV banana bag hydration When he is medically clear will request social work consult regarding alcohol abuse counseling and resources for help (5) Diabetes mellitus, new onset Conclusion/Plan: This is a new diagnosis of diabetes mellitus for this patient Plan: Treat for DKA as above He will need diabetic teaching, nutrition consult, and probably initiate oral meds when he is out of DKA Await his A1c result (6) V-tach Conclusion/Plan: A 4 beat run of wide-complex monomorphic tachycardia seen on his resting EKG, this is consistent with V. tach This is likely related to his electrolyte abnormalities or he may have an alcoholic cardiomyopathy predisposing him to V. tach Plan: Placed on insurance sales supervisor potassium, calcium and magnesium and replace if low We will also check his troponin now and in several hours and in the morning. Obtain an Echocardiogram (7) Atrial flutter with rapid ventricular response Conclusion/Plan: There is no prior history of atrial fib or flutter in his EMR. We do not know his cardiac status as far as a possible alcoholic cardiomyopathy. Plan: Check troponins x2 to rule out ACS as the cause Check T4 and TSH to rule out hyperthyroidism Obtain an Echo to rule out cardiomyopathy and/or enlarged atria The patient cannot currently receive anticoagulants for stroke prophylaxis because of his active GI bleed We will use either diltiazem pushes, beta-marilu doses or he may need a diltiazem drip for rate control, if this RVR recurs - Lab Results Fish Bones: 12/17/22 01:11 12/17/22 04:54 - Diagnostic Imaging Results Diagnostic Imaging Results: positive: Final report reviewed - Other Other Results/Comments: Attestation: The patient is expected to be hospitalized for greater than 2 midnights and is expected to be discharged or transferred to another facility within 96 hours: Yes
[2022-12-16 18:58] LABS: ALBUMIN 3.5 g/dL (3.2-5.5); ALBUMIN/GLOBULIN RATIO 1.3 (1.0-2.2); ALKALINE PHOSPHATASE 92 IU/L (42-121); ALT ALANINE AMINOTRANSFERASE 6 IU/L (10-60); AST ASPARTATE AMINOTRANSFERASE 9 IU/L (10-42); BILIRUBIN,TOTAL 0.5 mg/dL (0.2-1.0); BUN - BLOOD UREA NITROGEN 30 mg/dL (6-20); CALCIUM 8.6 mg/dL (8.5-10.3); CARBON DIOXIDE - CO2 24 mmol/L (21-32); CHLORIDE 106 mmol/L (101-111); CREATININE 0.7 mg/dL (0.6-1.3); ETOH - ETHANOL < 10.0 mg/dL; GFR - MDRD 115 (>89); GLUCOSE 296 mg/dL (74-104); MAGNESIUM 2.1 mg/dL (1.7-2.3); SODIUM 141 mmol/L (135-145); TOTAL PROTEIN 6.2 g/dL (6.4-8.9)
[2022-12-16] MEDS ORDERED: INSULIN REGULAR IN 0.9 % NS 100 UNIT/100 ML BAG IV SCH (19:00)
[2022-12-16 19:03] LABS: KETONES, SERUM (ACETEST) SMALL (NEGATIVE)
[2022-12-16 20:59] LABS: KETONES, SERUM (ACETEST) SMALL (NEGATIVE)
[2022-12-16 21:01] LABS: ESTIMATED AVERAGE GLUCOSE 318 mg/dL (70-100); HEMOGLOBIN A1c% 12.7 % (4.27-6.07)
[2022-12-16 21:13] LABS: BUN - BLOOD UREA NITROGEN 30 mg/dL (6-20); CALCIUM 8.5 mg/dL (8.5-10.3); CARBON DIOXIDE - CO2 23 mmol/L (21-32); CHLORIDE 107 mmol/L (101-111); CREATININE 0.7 mg/dL (0.6-1.3); GFR - MDRD 115 (>89); GLUCOSE 270 mg/dL (74-104); POTASSIUM 4.1 mmol/L (3.5-4.5); SODIUM 140 mmol/L (135-145)
[2022-12-16] MEDS: ONDANSETRON 4 MG/2 ML VIAL IVP PRN (21:15)
[2022-12-16] MEDS ORDERED: POTASSIUM CHLOR 10 MEQ/100 ML 10 MEQ/100 ML BAG IV ONE ×2 (21:46→23:00)
[2022-12-16] MEDS: PANTOPRAZOLE 40 MG VIAL IVP SCH (22:17)
[2022-12-16] MEDS: SUCRALFATE 1 GM/10 ML UDC PO SCH (22:17)
[2022-12-16] MEDS: diltiaZEM INJ 5 MG/ML VIAL IVP SCH (22:18)
[2022-12-16] MEDS: DEXTROSE 5%-0.9% NACL 1,000 ML IV SCH (22:35)
[2022-12-17 00:05] LABS: CALCIUM 8.4 mg/dL (8.5-10.3); CREATININE 0.6 mg/dL (0.6-1.3); POTASSIUM 3.4 mmol/L (3.5-4.5)
[2022-12-17] MEDS: PROCHLORPERAZINE 10 MG/2 ML VIAL IVP PRN (00:21)
[2022-12-17] MEDS: SODIUM CHLORIDE FLUSH 0.9% 10 ML SYRINGE IVP SCH ×3 (00:46→18:59)
[2022-12-17] MEDS ORDERED: METOPROLOL 5 MG/5 ML VIAL IVP PRN (00:58)
[2022-12-17] MEDS ORDERED: POTASSIUM PHOSPHATE 15 MMOL in SODIUM CHLORIDE 0.9% 250 ML IV ONE (01:11)
[2022-12-17 01:17] LABS: CALCIUM, IONIZED 1.12 mmol/L (1.15-1.33); VBG PH 7.463 (7.31-7.41)
[2022-12-17 01:17] LABS: HCT - HEMATOCRIT 32.3 % (42.0-52.0)
[2022-12-17 01:21] LABS: MAGNESIUM 1.9 mg/dL (1.7-2.3)
[2022-12-17 01:24] LABS: KETONES, SERUM (ACETEST) NEGATIVE (NEGATIVE)
[2022-12-17] MEDS ORDERED: diltiaZEM INJ 125 MG in DEXTROSE 5% 100 ML IV SCH (04:00)
[2022-12-17] MEDS ORDERED: SODIUM CHLORIDE 0.9% 500 ML IV ONE (04:41)
[2022-12-17 05:22] LABS: ALKALINE PHOSPHATASE 68 IU/L (42-121); ALT ALANINE AMINOTRANSFERASE 5 IU/L (10-60); AST ASPARTATE AMINOTRANSFERASE 10 IU/L (10-42); BILIRUBIN,DIRECT < 0.10 mg/dL (0.03-0.18); BILIRUBIN,TOTAL 0.4 mg/dL (0.2-1.0); BUN - BLOOD UREA NITROGEN 25 mg/dL (6-20); CALCIUM 8.2 mg/dL (8.5-10.3); CARBON DIOXIDE - CO2 24 mmol/L (21-32); CHLORIDE 112 mmol/L (101-111); CREATININE 0.5 mg/dL (0.6-1.3); GFR - MDRD 169 (>89); GLUCOSE 133 mg/dL (74-104); MAGNESIUM 1.9 mg/dL (1.7-2.3); PHOSPHORUS 2.1 mg/dL (2.5-5.0); POTASSIUM 3.5 mmol/L (3.5-4.5); SODIUM 143 mmol/L (135-145); TOTAL PROTEIN 5.2 g/dL (6.4-8.9)
[2022-12-17 05:30] LABS: TROPONIN I HIGH SENSITIVITY 134.4 ng/L (2.3-19.7)
[2022-12-17 06:00] LABS: KETONES, SERUM (ACETEST) SMALL (NEGATIVE)
[2022-12-17] MEDS: DEXTROSE 5%-0.9% NACL 1,000 ML IV SCH (06:24)
[2022-12-17] MEDS: SUCRALFATE 1 GM/10 ML UDC PO SCH ×4 (06:56→22:11)
[2022-12-17] MEDS ORDERED: MULTIVITAMIN 10 ML, THIAMINE INJ 100 MG, FOLIC ACID INJ 1 MG in SODIUM CHLORIDE 0.9% 1,... IV SCH (09:00)
[2022-12-17] MEDS: PANTOPRAZOLE 40 MG VIAL IVP SCH ×2 (09:29→21:42)
[2022-12-17] MEDS: diltiaZEM INJ 5 MG/ML VIAL IVP SCH ×2 (09:29→21:46)
[2022-12-17] MEDS ORDERED: DEXTROSE 5%-0.9% NACL 1,000 ML IV SCH (11:41)
[2022-12-17] MEDS ORDERED: HYDROmorphone 0.5 MG/0.5 ML SYRINGE IVP PRN (11:47)
[2022-12-17] MEDS: INSULIN LISPRO 300 UNIT/3 ML PEN SUBQ SCH ×3 (12:25→22:02)
--- NOTE | 2022-12-17 13:21 | PHARMACY PROGRESS NOTE ---
- Best Possible Medication History Admit Date and Time: 12/16/22 1826 Processed by: Pharmacy Medication History completed: Yes Patient Interview: Pt unable to participate Secondary Source(s): Insurance records As the person ultimately responsible for medication therapy, providers are able to order a medication from an existing home medication list in [facility] via the "Reconcile Routine" prior to Confirmation of that medication by call center support representative. Such practice is discouraged except when the physician, in their clinical judgment, deems that a medical need exists for a medication without regard to previous use.
--- NOTE | 2022-12-17 15:26 | PROVIDER PROGRESS NOTE ---
Subjective - Subjective Pt reports feeling: Improved (No c/o, is hungry) Objective - Vital Signs/Intake & Output Reviewed Vital Signs: Yes Vital Signs: Vital Signs Temp Pulse Resp BP Pulse Ox 12/17/22 14:00 73 22 91/60 96 12/17/22 13:00 80 17 105/65 100 12/17/22 12:00 36.5 C 83 19 120/69 100 Intake & Output: Intake & Output 12/14/22 12/15/22 12/16/22 12/17/22 23:59 23:59 23:59 23:59 Intake Total 2129.525 5491.816 Output Total 910 230 Balance 2744.702 7866.816 - Objective General Appearance: positive: No acute distress, Alert Eyes Bilateral: positive: Normal inspection, EOMI ENT: positive: No signs of dehydration, Other (all 4 fron incisors missing) Neck: positive: Nml inspection, No JVD Respiratory: positive: No respiratory distress, Breath sounds nml Cardiovascular: positive: Regular rate & rhythm, No murmur Abdomen: positive: Non-tender, Nml bowel sounds, No distention Skin: positive: Warm, Dry, Other (Dirty, disheveled) Neurologic/Psychiatric: positive: Oriented x3, Motor nml - Lab Results Fish Bones: 12/17/22 01:11 12/17/22 16:30 Other Labs: Lab Results x24hrs 12/17/22 12/17/22 12/17/22 Range/Units 13:51 12:05 11:06 Hgb (14.0-18.0) g/dL Hct (42.0-52.0) % VBG pH (7.31-7.41) Ionized Calcium (1.15-1.33) mmol/L Sodium (135-145) mmol/L Potassium (3.5-4.5) mmol/L Chloride (101-111) mmol/L Carbon Dioxide (21-32) mmol/L Anion Gap (6-13) BUN (6-20) mg/dL Creatinine (0.6-1.3) mg/dL Estimated GFR (MDRD) (>89) Glucose (74-104) mg/dL POC Whole Bld Glucose 107 H 165 H 243 H (70 - 100) mg/dL Estimat Average Glucose (70-100) mg/dL Hemoglobin A1c % (4.27-6.07) % Calcium (8.5-10.3) mg/dL Phosphorus (2.5-5.0) mg/dL Magnesium (1.7-2.3) mg/dL Total Bilirubin (0.2-1.0) mg/dL Direct Bilirubin (0.03-0.18) mg/dL AST (10-42) IU/L ALT (10-60) IU/L Alkaline Phosphatase (42-121) IU/L Troponin I High Sens (2.3-19.7) ng/L B-Natriuretic Peptide (5-100) pg/mL Total Protein (6.4-8.9) g/dL Albumin (3.2-5.5) g/dL Globulin (2.1-4.2) g/dL Albumin/Globulin Ratio (1.0-2.2) Vitamin B12 (180-914) pg/mL Folate (5.90 - >24.8) ng/mL TSH (0.34-5.60) uIU/mL Urine Color Urine Clarity (CLEAR) Urine pH (5.0-7.5) PH Ur Specific [place] (1.002-1.030) Urine Protein (NEGATIVE) mg/dL Urine Glucose (UA) (NEGATIVE) mg/dL Urine Ketones (NEGATIVE) mg/dL Urine Occult Blood (NEGATIVE) Urine Nitrite (NEGATIVE) Urine Bilirubin (NEGATIVE) Urine Urobilinogen (NORMAL) E.U./dL Ur Leukocyte Esterase (NEGATIVE) Ur Microscopic Review Urine Culture Comments Nasal Screen MRSA (PCR) (NEGATIVE) Urine Opiates Screen (NEGATIVE) Ur Oxycodone Screen (NEGATIVE) Urine Methadone Screen (NEGATIVE) Ur Propoxyphene Screen (NEGATIVE) Ur Barbiturates Screen (NEGATIVE) Ur Tricyclics Screen (NEGATIVE) Ur Phencyclidine Scrn (NEGATIVE) Ur Amphetamine Screen (NEGATIVE) U Methamphetamines Scrn (NEGATIVE) U Benzodiazepines Scrn (NEGATIVE) Urine Cocaine Screen (NEGATIVE) U Cannabinoids Screen (NEGATIVE) Ethyl Alcohol mg/dL Serum Ketones (NEGATIVE) 12/17/22 12/17/22 12/17/22 Range/Units 08:52 08:52 07:50 Hgb (14.0-18.0) g/dL Hct (42.0-52.0) % VBG pH (7.31-7.41) Ionized Calcium (1.15-1.33) mmol/L Sodium (135-145) mmol/L Potassium (3.5-4.5) mmol/L Chloride (101-111) mmol/L Carbon Dioxide (21-32) mmol/L Anion Gap (6-13) BUN (6-20) mg/dL Creatinine (0.6-1.3) mg/dL Estimated GFR (MDRD) (>89) Glucose (74-104) mg/dL POC Whole Bld Glucose 252 H (70 - 100) mg/dL Estimat Average Glucose (70-100) mg/dL Hemoglobin A1c % (4.27-6.07) % Calcium (8.5-10.3) mg/dL Phosphorus (2.5-5.0) mg/dL Magnesium (1.7-2.3) mg/dL Total Bilirubin (0.2-1.0) mg/dL Direct Bilirubin (0.03-0.18) mg/dL AST (10-42) IU/L ALT (10-60) IU/L Alkaline Phosphatase (42-121) IU/L Troponin I High Sens (2.3-19.7) ng/L B-Natriuretic Peptide (5-100) pg/mL Total Protein (6.4-8.9) g/dL Albumin (3.2-5.5) g/dL Globulin (2.1-4.2) g/dL Albumin/Globulin Ratio (1.0-2.2) Vitamin B12 316 (180-914) pg/mL Folate 10.7 (5.90 - >24.8) ng/mL TSH (0.34-5.60) uIU/mL Urine Color Urine Clarity (CLEAR) Urine pH (5.0-7.5) PH Ur Specific [place] (1.002-1.030) Urine Protein (NEGATIVE) mg/dL Urine Glucose (UA) (NEGATIVE) mg/dL Urine Ketones (NEGATIVE) mg/dL Urine Occult Blood (NEGATIVE) Urine Nitrite (NEGATIVE) Urine Bilirubin (NEGATIVE) Urine Urobilinogen (NORMAL) E.U./dL Ur Leukocyte Esterase (NEGATIVE) Ur Microscopic Review Urine Culture Comments Nasal Screen MRSA (PCR) (NEGATIVE) Urine Opiates Screen (NEGATIVE) Ur Oxycodone Screen (NEGATIVE) Urine Methadone Screen (NEGATIVE) Ur Propoxyphene Screen (NEGATIVE) Ur Barbiturates Screen (NEGATIVE) Ur Tricyclics Screen (NEGATIVE) Ur Phencyclidine Scrn (NEGATIVE) Ur Amphetamine Screen (NEGATIVE) U Methamphetamines Scrn (NEGATIVE) U Benzodiazepines Scrn (NEGATIVE) Urine Cocaine Screen (NEGATIVE) U Cannabinoids Screen (NEGATIVE) Ethyl Alcohol mg/dL Serum Ketones NEGATIVE (NEGATIVE) 12/17/22 12/17/22 12/17/22 Range/Units 06:53 04:54 04:54 Hgb (14.0-18.0) g/dL Hct (42.0-52.0) % VBG pH (7.31-7.41) Ionized Calcium (1.15-1.33) mmol/L Sodium (135-145) mmol/L Potassium (3.5-4.5) mmol/L Chloride (101-111) mmol/L Carbon Dioxide (21-32) mmol/L Anion Gap (6-13) BUN (6-20) mg/dL Creatinine (0.6-1.3) mg/dL Estimated GFR (MDRD) (>89) Glucose (74-104) mg/dL POC Whole Bld Glucose 248 H 128 H (70 - 100) mg/dL Estimat Average Glucose (70-100) mg/dL Hemoglobin A1c % (4.27-6.07) % Calcium (8.5-10.3) mg/dL Phosphorus (2.5-5.0) mg/dL Magnesium (1.7-2.3) mg/dL Total Bilirubin (0.2-1.0) mg/dL Direct Bilirubin (0.03-0.18) mg/dL AST (10-42) IU/L ALT (10-60) IU/L Alkaline Phosphatase (42-121) IU/L Troponin I High Sens (2.3-19.7) ng/L B-Natriuretic Peptide (5-100) pg/mL Total Protein (6.4-8.9) g/dL Albumin (3.2-5.5) g/dL Globulin (2.1-4.2) g/dL Albumin/Globulin Ratio (1.0-2.2) Vitamin B12 (180-914) pg/mL Folate (5.90 - >24.8) ng/mL TSH 2.47 (0.34-5.60) uIU/mL Urine Color Urine Clarity (CLEAR) Urine pH (5.0-7.5) PH Ur Specific [place] (1.002-1.030) Urine Protein (NEGATIVE) mg/dL Urine Glucose (UA) (NEGATIVE) mg/dL Urine Ketones (NEGATIVE) mg/dL Urine Occult Blood (NEGATIVE) Urine Nitrite (NEGATIVE) Urine Bilirubin (NEGATIVE) Urine Urobilinogen (NORMAL) E.U./dL Ur Leukocyte Esterase (NEGATIVE) Ur Microscopic Review Urine Culture Comments Nasal Screen MRSA (PCR) (NEGATIVE) Urine Opiates Screen (NEGATIVE) Ur Oxycodone Screen (NEGATIVE) Urine Methadone Screen (NEGATIVE) Ur Propoxyphene Screen (NEGATIVE) Ur Barbiturates Screen (NEGATIVE) Ur Tricyclics Screen (NEGATIVE) Ur Phencyclidine Scrn (NEGATIVE) Ur Amphetamine Screen (NEGATIVE) U Methamphetamines Scrn (NEGATIVE) U Benzodiazepines Scrn (NEGATIVE) Urine Cocaine Screen (NEGATIVE) U Cannabinoids Screen (NEGATIVE) Ethyl Alcohol mg/dL Serum Ketones (NEGATIVE) 12/17/22 12/17/22 12/17/22 Range/Units 04:54 04:02 02:59 Hgb (14.0-18.0) g/dL Hct (42.0-52.0) % VBG pH (7.31-7.41) Ionized Calcium (1.15-1.33) mmol/L Sodium 143 (135-145) mmol/L Potassium 3.5 (3.5-4.5) mmol/L Chloride 112 H (101-111) mmol/L Carbon Dioxide 24 (21-32) mmol/L Anion Gap 7.0 (6-13) BUN 25 H (6-20) mg/dL Creatinine 0.5 L (0.6-1.3) mg/dL Estimated GFR (MDRD) 169 (>89) Glucose 133 H (74-104) mg/dL POC Whole Bld Glucose 110 H (70 - 100) mg/dL Estimat Average Glucose (70-100) mg/dL Hemoglobin A1c % (4.27-6.07) % Calcium 8.2 L (8.5-10.3) mg/dL Phosphorus 2.1 L (2.5-5.0) mg/dL Magnesium 1.9 (1.7-2.3) mg/dL Total Bilirubin 0.4 (0.2-1.0) mg/dL Direct Bilirubin < 0.10 (0.03-0.18) mg/dL AST 10 (10-42) IU/L ALT 5 L (10-60) IU/L Alkaline Phosphatase 68 (42-121) IU/L Troponin I High Sens 134.4 H* (2.3-19.7) ng/L B-Natriuretic Peptide (5-100) pg/mL Total Protein 5.2 L (6.4-8.9) g/dL Albumin 3.0 L (3.2-5.5) g/dL Globulin 2.2 (2.1-4.2) g/dL Albumin/Globulin Ratio (1.0-2.2) Vitamin B12 (180-914) pg/mL Folate (5.90 - >24.8) ng/mL TSH (0.34-5.60) uIU/mL Urine Color Urine Clarity (CLEAR) Urine pH (5.0-7.5) PH Ur Specific [place] (1.002-1.030) Urine Protein (NEGATIVE) mg/dL Urine Glucose (UA) (NEGATIVE) mg/dL Urine Ketones (NEGATIVE) mg/dL Urine Occult Blood (NEGATIVE) Urine Nitrite (NEGATIVE) Urine Bilirubin (NEGATIVE) Urine Urobilinogen (NORMAL) E.U./dL Ur Leukocyte Esterase (NEGATIVE) Ur Microscopic Review Urine Culture Comments Nasal Screen MRSA (PCR) (NEGATIVE) Urine Opiates Screen (NEGATIVE) Ur Oxycodone Screen (NEGATIVE) Urine Methadone Screen (NEGATIVE) Ur Propoxyphene Screen (NEGATIVE) Ur Barbiturates Screen (NEGATIVE) Ur Tricyclics Screen (NEGATIVE) Ur Phencyclidine Scrn (NEGATIVE) Ur Amphetamine Screen (NEGATIVE) U Methamphetamines Scrn (NEGATIVE) U Benzodiazepines Scrn (NEGATIVE) Urine Cocaine Screen (NEGATIVE) U Cannabinoids Screen (NEGATIVE) Ethyl Alcohol mg/dL Serum Ketones SMALL H NEGATIVE (NEGATIVE) 12/17/22 12/17/22 12/17/22 Range/Units 02:58 01:57 01:11 Hgb 11.0 L (14.0-18.0) g/dL Hct 32.3 L (42.0-52.0) % VBG pH (7.31-7.41) Ionized Calcium (1.15-1.33) mmol/L Sodium (135-145) mmol/L Potassium (3.5-4.5) mmol/L Chloride (101-111) mmol/L Carbon Dioxide (21-32) mmol/L Anion Gap (6-13) BUN (6-20) mg/dL Creatinine (0.6-1.3) mg/dL Estimated GFR (MDRD) (>89) Glucose (74-104) mg/dL POC Whole Bld Glucose 84 86 (70 - 100) mg/dL Estimat Average Glucose (70-100) mg/dL Hemoglobin A1c % (4.27-6.07) % Calcium (8.5-10.3) mg/dL Phosphorus (2.5-5.0) mg/dL Magnesium (1.7-2.3) mg/dL Total Bilirubin (0.2-1.0) mg/dL Direct Bilirubin (0.03-0.18) mg/dL AST (10-42) IU/L ALT (10-60) IU/L Alkaline Phosphatase (42-121) IU/L Troponin I High Sens (2.3-19.7) ng/L B-Natriuretic Peptide (5-100) pg/mL Total Protein (6.4-8.9) g/dL Albumin (3.2-5.5) g/dL Globulin (2.1-4.2) g/dL Albumin/Globulin Ratio (1.0-2.2) Vitamin B12 (180-914) pg/mL Folate (5.90 - >24.8) ng/mL TSH (0.34-5.60) uIU/mL Urine Color Urine Clarity (CLEAR) Urine pH (5.0-7.5) PH Ur Specific [place] (1.002-1.030) Urine Protein (NEGATIVE) mg/dL Urine Glucose (UA) (NEGATIVE) mg/dL Urine Ketones (NEGATIVE) mg/dL Urine Occult Blood (NEGATIVE) Urine Nitrite (NEGATIVE) Urine Bilirubin (NEGATIVE) Urine Urobilinogen (NORMAL) E.U./dL Ur Leukocyte Esterase (NEGATIVE) Ur Microscopic Review Urine Culture Comments Nasal Screen MRSA (PCR) (NEGATIVE) Urine Opiates Screen (NEGATIVE) Ur Oxycodone Screen (NEGATIVE) Urine Methadone Screen (NEGATIVE) Ur Propoxyphene Screen (NEGATIVE) Ur Barbiturates Screen (NEGATIVE) Ur Tricyclics Screen (NEGATIVE) Ur Phencyclidine Scrn (NEGATIVE) Ur Amphetamine Screen (NEGATIVE) U Methamphetamines Scrn (NEGATIVE) U Benzodiazepines Scrn (NEGATIVE) Urine Cocaine Screen (NEGATIVE) U Cannabinoids Screen (NEGATIVE) Ethyl Alcohol mg/dL Serum Ketones (NEGATIVE) 12/17/22 12/17/22 12/17/22 Range/Units 01:01 01:01 01:00 Hgb (14.0-18.0) g/dL Hct (42.0-52.0) % VBG pH 7.463 H (7.31-7.41) Ionized Calcium 1.12 L (1.15-1.33) mmol/L Sodium (135-145) mmol/L Potassium (3.5-4.5) mmol/L Chloride (101-111) mmol/L Carbon Dioxide (21-32) mmol/L Anion Gap (6-13) BUN (6-20) mg/dL Creatinine (0.6-1.3) mg/dL Estimated GFR (MDRD) (>89) Glucose (74-104) mg/dL POC Whole Bld Glucose 146 H (70 - 100) mg/dL Estimat Average Glucose (70-100) mg/dL Hemoglobin A1c % (4.27-6.07) % Calcium (8.5-10.3) mg/dL Phosphorus (2.5-5.0) mg/dL Magnesium 1.9 (1.7-2.3) mg/dL Total Bilirubin (0.2-1.0) mg/dL Direct Bilirubin (0.03-0.18) mg/dL AST (10-42) IU/L ALT (10-60) IU/L Alkaline Phosphatase (42-121) IU/L Troponin I High Sens (2.3-19.7) ng/L B-Natriuretic Peptide (5-100) pg/mL Total Protein (6.4-8.9) g/dL Albumin (3.2-5.5) g/dL Globulin (2.1-4.2) g/dL Albumin/Globulin Ratio (1.0-2.2) Vitamin B12 (180-914) pg/mL Folate (5.90 - >24.8) ng/mL TSH (0.34-5.60) uIU/mL Urine Color Urine Clarity (CLEAR) Urine pH (5.0-7.5) PH Ur Specific [place] (1.002-1.030) Urine Protein (NEGATIVE) mg/dL Urine Glucose (UA) (NEGATIVE) mg/dL Urine Ketones (NEGATIVE) mg/dL Urine Occult Blood (NEGATIVE) Urine Nitrite (NEGATIVE) Urine Bilirubin (NEGATIVE) Urine Urobilinogen (NORMAL) E.U./dL Ur Leukocyte Esterase (NEGATIVE) Ur Microscopic Review Urine Culture Comments Nasal Screen MRSA (PCR) (NEGATIVE) Urine Opiates Screen (NEGATIVE) Ur Oxycodone Screen (NEGATIVE) Urine Methadone Screen (NEGATIVE) Ur Propoxyphene Screen (NEGATIVE) Ur Barbiturates Screen (NEGATIVE) Ur Tricyclics Screen (NEGATIVE) Ur Phencyclidine Scrn (NEGATIVE) Ur Amphetamine Screen (NEGATIVE) U Methamphetamines Scrn (NEGATIVE) U Benzodiazepines Scrn (NEGATIVE) Urine Cocaine Screen (NEGATIVE) U Cannabinoids Screen (NEGATIVE) Ethyl Alcohol mg/dL Serum Ketones NEGATIVE (NEGATIVE) 12/16/22 12/16/22 12/16/22 Range/Units 23:56 23:39 23:39 Hgb (14.0-18.0) g/dL Hct (42.0-52.0) % VBG pH (7.31-7.41) Ionized Calcium (1.15-1.33) mmol/L Sodium 140 (135-145) mmol/L Potassium 3.4 L (3.5-4.5) mmol/L Chloride 108 (101-111) mmol/L Carbon Dioxide 25 (21-32) mmol/L Anion Gap 7.0 (6-13) BUN 26 H (6-20) mg/dL Creatinine 0.6 (0.6-1.3) mg/dL Estimated GFR (MDRD) 137 (>89) Glucose 258 H (74-104) mg/dL POC Whole Bld Glucose 218 H (70 - 100) mg/dL Estimat Average Glucose (70-100) mg/dL Hemoglobin A1c % (4.27-6.07) % Calcium 8.4 L (8.5-10.3) mg/dL Phosphorus 2.1 L (2.5-5.0) mg/dL Magnesium (1.7-2.3) mg/dL Total Bilirubin (0.2-1.0) mg/dL Direct Bilirubin (0.03-0.18) mg/dL AST (10-42) IU/L ALT (10-60) IU/L Alkaline Phosphatase (42-121) IU/L Troponin I High Sens (2.3-19.7) ng/L B-Natriuretic Peptide (5-100) pg/mL Total Protein (6.4-8.9) g/dL Albumin (3.2-5.5) g/dL Globulin (2.1-4.2) g/dL Albumin/Globulin Ratio (1.0-2.2) Vitamin B12 (180-914) pg/mL Folate (5.90 - >24.8) ng/mL TSH (0.34-5.60) uIU/mL Urine Color Urine Clarity (CLEAR) Urine pH (5.0-7.5) PH Ur Specific [place] (1.002-1.030) Urine Protein (NEGATIVE) mg/dL Urine Glucose (UA) (NEGATIVE) mg/dL Urine Ketones (NEGATIVE) mg/dL Urine Occult Blood (NEGATIVE) Urine Nitrite (NEGATIVE) Urine Bilirubin (NEGATIVE) Urine Urobilinogen (NORMAL) E.U./dL Ur Leukocyte Esterase (NEGATIVE) Ur Microscopic Review Urine Culture Comments Nasal Screen MRSA (PCR) (NEGATIVE) Urine Opiates Screen (NEGATIVE) Ur Oxycodone Screen (NEGATIVE) Urine Methadone Screen (NEGATIVE) Ur Propoxyphene Screen (NEGATIVE) Ur Barbiturates Screen (NEGATIVE) Ur Tricyclics Screen (NEGATIVE) Ur Phencyclidine Scrn (NEGATIVE) Ur Amphetamine Screen (NEGATIVE) U Methamphetamines Scrn (NEGATIVE) U Benzodiazepines Scrn (NEGATIVE) Urine Cocaine Screen (NEGATIVE) U Cannabinoids Screen (NEGATIVE) Ethyl Alcohol mg/dL Serum Ketones (NEGATIVE) 12/16/22 12/16/22 12/16/22 Range/Units 23:00 21:58 20:48 Hgb (14.0-18.0) g/dL Hct (42.0-52.0) % VBG pH (7.31-7.41) Ionized Calcium (1.15-1.33) mmol/L Sodium (135-145) mmol/L Potassium (3.5-4.5) mmol/L Chloride (101-111) mmol/L Carbon Dioxide (21-32) mmol/L Anion Gap (6-13) BUN (6-20) mg/dL Creatinine (0.6-1.3) mg/dL Estimated GFR (MDRD) (>89) Glucose (74-104) mg/dL POC Whole Bld Glucose 265 H 208 H 257 H (70 - 100) mg/dL Estimat Average Glucose (70-100) mg/dL Hemoglobin A1c % (4.27-6.07) % Calcium (8.5-10.3) mg/dL Phosphorus (2.5-5.0) mg/dL Magnesium (1.7-2.3) mg/dL Total Bilirubin (0.2-1.0) mg/dL Direct Bilirubin (0.03-0.18) mg/dL AST (10-42) IU/L ALT (10-60) IU/L Alkaline Phosphatase (42-121) IU/L Troponin I High Sens (2.3-19.7) ng/L B-Natriuretic Peptide (5-100) pg/mL Total Protein (6.4-8.9) g/dL Albumin (3.2-5.5) g/dL Globulin (2.1-4.2) g/dL Albumin/Globulin Ratio (1.0-2.2) Vitamin B12 (180-914) pg/mL Folate (5.90 - >24.8) ng/mL TSH (0.34-5.60) uIU/mL Urine Color Urine Clarity (CLEAR) Urine pH (5.0-7.5) PH Ur Specific [place] (1.002-1.030) Urine Protein (NEGATIVE) mg/dL Urine Glucose (UA) (NEGATIVE) mg/dL Urine Ketones (NEGATIVE) mg/dL Urine Occult Blood (NEGATIVE) Urine Nitrite (NEGATIVE) Urine Bilirubin (NEGATIVE) Urine Urobilinogen (NORMAL) E.U./dL Ur Leukocyte Esterase (NEGATIVE) Ur Microscopic Review Urine Culture Comments Nasal Screen MRSA (PCR) (NEGATIVE) Urine Opiates Screen (NEGATIVE) Ur Oxycodone Screen (NEGATIVE) Urine Methadone Screen (NEGATIVE) Ur Propoxyphene Screen (NEGATIVE) Ur Barbiturates Screen (NEGATIVE) Ur Tricyclics Screen (NEGATIVE) Ur Phencyclidine Scrn (NEGATIVE) Ur Amphetamine Screen (NEGATIVE) U Methamphetamines Scrn (NEGATIVE) U Benzodiazepines Scrn (NEGATIVE) Urine Cocaine Screen (NEGATIVE) U Cannabinoids Screen (NEGATIVE) Ethyl Alcohol mg/dL Serum Ketones (NEGATIVE) 12/16/22 12/16/22 12/16/22 Range/Units 20:46 20:46 20:13 Hgb (14.0-18.0) g/dL Hct (42.0-52.0) % VBG pH (7.31-7.41) Ionized Calcium (1.15-1.33) mmol/L Sodium 140 (135-145) mmol/L Potassium 4.1 (3.5-4.5) mmol/L Chloride 107 (101-111) mmol/L Carbon Dioxide 23 (21-32) mmol/L Anion Gap 10.0 (6-13) BUN 30 H (6-20) mg/dL Creatinine 0.7 (0.6-1.3) mg/dL Estimated GFR (MDRD) 115 (>89) Glucose 270 H (74-104) mg/dL POC Whole Bld Glucose (70 - 100) mg/dL Estimat Average Glucose (70-100) mg/dL Hemoglobin A1c % (4.27-6.07) % Calcium 8.5 (8.5-10.3) mg/dL Phosphorus (2.5-5.0) mg/dL Magnesium 2.0 (1.7-2.3) mg/dL Total Bilirubin (0.2-1.0) mg/dL Direct Bilirubin (0.03-0.18) mg/dL AST (10-42) IU/L ALT (10-60) IU/L Alkaline Phosphatase (42-121) IU/L Troponin I High Sens 190.1 H* (2.3-19.7) ng/L B-Natriuretic Peptide (5-100) pg/mL Total Protein (6.4-8.9) g/dL Albumin (3.2-5.5) g/dL Globulin (2.1-4.2) g/dL Albumin/Globulin Ratio (1.0-2.2) Vitamin B12 (180-914) pg/mL Folate (5.90 - >24.8) ng/mL TSH (0.34-5.60) uIU/mL Urine Color Urine Clarity (CLEAR) Urine pH (5.0-7.5) PH Ur Specific [place] (1.002-1.030) Urine Protein (NEGATIVE) mg/dL Urine Glucose (UA) (NEGATIVE) mg/dL Urine Ketones (NEGATIVE) mg/dL Urine Occult Blood (NEGATIVE) Urine Nitrite (NEGATIVE) Urine Bilirubin (NEGATIVE) Urine Urobilinogen (NORMAL) E.U./dL Ur Leukocyte Esterase (NEGATIVE) Ur Microscopic Review Urine Culture Comments Nasal Screen MRSA (PCR) NEGATIVE (NEGATIVE) Urine Opiates Screen (NEGATIVE) Ur Oxycodone Screen (NEGATIVE) Urine Methadone Screen (NEGATIVE) Ur Propoxyphene Screen (NEGATIVE) Ur Barbiturates Screen (NEGATIVE) Ur Tricyclics Screen (NEGATIVE) Ur Phencyclidine Scrn (NEGATIVE) Ur Amphetamine Screen (NEGATIVE) U Methamphetamines Scrn (NEGATIVE) U Benzodiazepines Scrn (NEGATIVE) Urine Cocaine Screen (NEGATIVE) U Cannabinoids Screen (NEGATIVE) Ethyl Alcohol mg/dL Serum Ketones SMALL H (NEGATIVE) 12/16/22 12/16/22 12/16/22 Range/Units 20:01 18:52 18:39 Hgb (14.0-18.0) g/dL Hct (42.0-52.0) % VBG pH (7.31-7.41) Ionized Calcium (1.15-1.33) mmol/L Sodium (135-145) mmol/L Potassium (3.5-4.5) mmol/L Chloride (101-111) mmol/L Carbon Dioxide (21-32) mmol/L Anion Gap (6-13) BUN (6-20) mg/dL Creatinine (0.6-1.3) mg/dL Estimated GFR (MDRD) (>89) Glucose (74-104) mg/dL POC Whole Bld Glucose 241 H 276 H (70 - 100) mg/dL Estimat Average Glucose (70-100) mg/dL Hemoglobin A1c % (4.27-6.07) % Calcium (8.5-10.3) mg/dL Phosphorus (2.5-5.0) mg/dL Magnesium (1.7-2.3) mg/dL Total Bilirubin (0.2-1.0) mg/dL Direct Bilirubin (0.03-0.18) mg/dL AST (10-42) IU/L ALT (10-60) IU/L Alkaline Phosphatase (42-121) IU/L Troponin I High Sens 170.0 H* (2.3-19.7) ng/L B-Natriuretic Peptide (5-100) pg/mL Total Protein (6.4-8.9) g/dL Albumin (3.2-5.5) g/dL Globulin (2.1-4.2) g/dL Albumin/Globulin Ratio (1.0-2.2) Vitamin B12 (180-914) pg/mL Folate (5.90 - >24.8) ng/mL TSH (0.34-5.60) uIU/mL Urine Color Urine Clarity (CLEAR) Urine pH (5.0-7.5) PH Ur Specific [place] (1.002-1.030) Urine Protein (NEGATIVE) mg/dL Urine Glucose (UA) (NEGATIVE) mg/dL Urine Ketones (NEGATIVE) mg/dL Urine Occult Blood (NEGATIVE) Urine Nitrite (NEGATIVE) Urine Bilirubin (NEGATIVE) Urine Urobilinogen (NORMAL) E.U./dL Ur Leukocyte Esterase (NEGATIVE) Ur Microscopic Review Urine Culture Comments Nasal Screen MRSA (PCR) (NEGATIVE) Urine Opiates Screen (NEGATIVE) Ur Oxycodone Screen (NEGATIVE) Urine Methadone Screen (NEGATIVE) Ur Propoxyphene Screen (NEGATIVE) Ur Barbiturates Screen (NEGATIVE) Ur Tricyclics Screen (NEGATIVE) Ur Phencyclidine Scrn (NEGATIVE) Ur Amphetamine Screen (NEGATIVE) U Methamphetamines Scrn (NEGATIVE) U Benzodiazepines Scrn (NEGATIVE) Urine Cocaine Screen (NEGATIVE) U Cannabinoids Screen (NEGATIVE) Ethyl Alcohol mg/dL Serum Ketones (NEGATIVE) 12/16/22 12/16/22 12/16/22 Range/Units 18:39 18:08 16:06 Hgb (14.0-18.0) g/dL Hct (42.0-52.0) % VBG pH (7.31-7.41) Ionized Calcium (1.15-1.33) mmol/L Sodium 141 (135-145) mmol/L Potassium 4.0 (3.5-4.5) mmol/L Chloride 106 (101-111) mmol/L Carbon Dioxide 24 (21-32) mmol/L Anion Gap 11.0 (6-13) BUN 30 H (6-20) mg/dL Creatinine 0.7 (0.6-1.3) mg/dL Estimated GFR (MDRD) 115 (>89) Glucose 296 H (74-104) mg/dL POC Whole Bld Glucose (70 - 100) mg/dL Estimat Average Glucose 318 H (70-100) mg/dL Hemoglobin A1c % 12.7 H (4.27-6.07) % Calcium 8.6 (8.5-10.3) mg/dL Phosphorus (2.5-5.0) mg/dL Magnesium 2.1 (1.7-2.3) mg/dL Total Bilirubin 0.5 (0.2-1.0) mg/dL Direct Bilirubin (0.03-0.18) mg/dL AST 9 L (10-42) IU/L ALT 6 L (10-60) IU/L Alkaline Phosphatase 92 (42-121) IU/L Troponin I High Sens (2.3-19.7) ng/L B-Natriuretic Peptide (5-100) pg/mL Total Protein 6.2 L (6.4-8.9) g/dL Albumin 3.5 (3.2-5.5) g/dL Globulin 2.7 (2.1-4.2) g/dL Albumin/Globulin Ratio 1.3 (1.0-2.2) Vitamin B12 (180-914) pg/mL Folate (5.90 - >24.8) ng/mL TSH (0.34-5.60) uIU/mL Urine Color YELLOW Urine Clarity CLEAR (CLEAR) Urine pH 5.5 (5.0-7.5) PH Ur Specific [place] 1.010 (1.002-1.030) Urine Protein NEGATIVE (NEGATIVE) mg/dL Urine Glucose (UA) >=1000 H (NEGATIVE) mg/dL Urine Ketones >=80 H (NEGATIVE) mg/dL Urine Occult Blood TRACE-INTA (NEGATIVE) Urine Nitrite NEGATIVE (NEGATIVE) Urine Bilirubin NEGATIVE (NEGATIVE) Urine Urobilinogen 0.2 (NORMAL) (NORMAL) E.U./dL Ur Leukocyte Esterase NEGATIVE (NEGATIVE) Ur Microscopic Review NOT INDICATED Urine Culture Comments NOT INDICATED Nasal Screen MRSA (PCR) (NEGATIVE) Urine Opiates Screen NEGATIVE (NEGATIVE) Ur Oxycodone Screen NEGATIVE (NEGATIVE) Urine Methadone Screen NEGATIVE (NEGATIVE) Ur Propoxyphene Screen NEGATIVE (NEGATIVE) Ur Barbiturates Screen NEGATIVE (NEGATIVE) Ur Tricyclics Screen NEGATIVE (NEGATIVE) Ur Phencyclidine Scrn NEGATIVE (NEGATIVE) Ur Amphetamine Screen NEGATIVE (NEGATIVE) U Methamphetamines Scrn NEGATIVE (NEGATIVE) U Benzodiazepines Scrn NEGATIVE (NEGATIVE) Urine Cocaine Screen NEGATIVE (NEGATIVE) U Cannabinoids Screen NEGATIVE (NEGATIVE) Ethyl Alcohol < 10.0 mg/dL Serum Ketones SMALL H (NEGATIVE) 12/16/22 12/16/22 Range/Units 16:01 13:45 Hgb (14.0-18.0) g/dL Hct (42.0-52.0) % VBG pH (7.31-7.41) Ionized Calcium (1.15-1.33) mmol/L Sodium (135-145) mmol/L Potassium (3.5-4.5) mmol/L Chloride (101-111) mmol/L Carbon Dioxide (21-32) mmol/L Anion Gap (6-13) BUN (6-20) mg/dL Creatinine (0.6-1.3) mg/dL Estimated GFR (MDRD) (>89) Glucose (74-104) mg/dL POC Whole Bld Glucose 394 H (70 - 100) mg/dL Estimat Average Glucose (70-100) mg/dL Hemoglobin A1c % (4.27-6.07) % Calcium (8.5-10.3) mg/dL Phosphorus (2.5-5.0) mg/dL Magnesium (1.7-2.3) mg/dL Total Bilirubin (0.2-1.0) mg/dL Direct Bilirubin (0.03-0.18) mg/dL AST (10-42) IU/L ALT (10-60) IU/L Alkaline Phosphatase (42-121) IU/L Troponin I High Sens (2.3-19.7) ng/L B-Natriuretic Peptide 80 (5-100) pg/mL Total Protein (6.4-8.9) g/dL Albumin (3.2-5.5) g/dL Globulin (2.1-4.2) g/dL Albumin/Globulin Ratio (1.0-2.2) Vitamin B12 (180-914) pg/mL Folate (5.90 - >24.8) ng/mL TSH (0.34-5.60) uIU/mL Urine Color Urine Clarity (CLEAR) Urine pH (5.0-7.5) PH Ur Specific [place] (1.002-1.030) Urine Protein (NEGATIVE) mg/dL Urine Glucose (UA) (NEGATIVE) mg/dL Urine Ketones (NEGATIVE) mg/dL Urine Occult Blood (NEGATIVE) Urine Nitrite (NEGATIVE) Urine Bilirubin (NEGATIVE) Urine Urobilinogen (NORMAL) E.U./dL Ur Leukocyte Esterase (NEGATIVE) Ur Microscopic Review Urine Culture Comments Nasal Screen MRSA (PCR) (NEGATIVE) Urine Opiates Screen (NEGATIVE) Ur Oxycodone Screen (NEGATIVE) Urine Methadone Screen (NEGATIVE) Ur Propoxyphene Screen (NEGATIVE) Ur Barbiturates Screen (NEGATIVE) Ur Tricyclics Screen (NEGATIVE) Ur Phencyclidine Scrn (NEGATIVE) Ur Amphetamine Screen (NEGATIVE) U Methamphetamines Scrn (NEGATIVE) U Benzodiazepines Scrn (NEGATIVE) Urine Cocaine Screen (NEGATIVE) U Cannabinoids Screen (NEGATIVE) Ethyl Alcohol mg/dL Serum Ketones (NEGATIVE) Assessment/Plan - Problem List (1) DKA (diabetic ketoacidosis) Impression: Glucose was over 500 and serum ketones present but he was not acidotic. He said he has no Hx of DM yestareday. He has a normal lipase level and a normal- appearing pancreas by CT imaging. He was placed in the ICU and started on DKA protocol using an insulin drip. Serum ketones have slowly decreased from small down to negative today (all labs were reviewed). His A1c is 12.7, consistent with poor glucose control that is longstanding Plan: Will stop the insulin drip, and transition him to long-acting insulin plus sliding scale short acting insulin, start a diabetic diet Since we learned today that he has had diabetes for several years, diabetic education will be ordered, and Nutrition consult. He indicates he does not want to be on Insulin, which he was on 10 years ago. If he tolerates advancing his diet today and does not redevelop nausea and vomiting or worsening ketosis, he can be transferred out of the ICU later today (2) Atrial flutter with rapid ventricular response Conclusion/Plan: There is no prior history of atrial fib or flutter in his EMR. We do not know his cardiac status as far as a possible alcoholic cardiomyopathy. His troponins have risen consistent with a Type 2 CA (demand) His TSH was checked to rule out hyperthyroidism, and came back normal at 2.47 Plan: Awaiting an Echo to rule out cardiomyopathy and/or enlarged atria The patient cannot currently receive anticoagulants for stroke prophylaxis becau se of his active GI bleed We will use either diltiazem pushes, beta-marilu doses or he may need a d iltiazem drip for rate control, if this RVR recurs (3) Type 2 CA Conclusion/Plan: Because of the atrial flutter and the V. tach, his troponins were cycled. They have more than doubled, going from 12 at admission>> 170>> 130>> 134 (all labs were reviewed). EKG was repeated today looking for changes. I personally interpreted this EKG. The EKG today shows sinus rhythm, rate 84, ventricular trigeminy, LVH voltage, diffuse T wave flattening consistent with ischemia. Since EKG from 12/16/2022 at 1336, the Aflutter is now absent. Since EKG from 12/16/2022 at 1322, it is similar. Plan: Obtain Echo I will start him on beta-blockers both for rate control and post CA treatment No ASA, due to acute GI bleed (4) Acute gastritis Conclusion/Plan: Likely related to his alcohol abuse Plan: Will advance diet as tolerated Cont Protonix 40 mg IV twice daily, will transition to po BID if he tolerates a diet Cont oral Carafate 4 times daily Follow his hemoglobin daily or every 12 hours Transfuse if hemoglobin under 7 Qualifiers: Gastritis type: alcoholic (5) UGI bleed Conclusion/Plan: No further coffee-ground emesis since since the episode in the ER at admission Plan: As in #4 (6) Alcohol abuse Conclusion/Plan: The patient stated he drinks 6 beers a day plus 6 shots of rum in [employer] drinks. His liver function tests show normal LFTs, MCV and INR. Plan: ContinueCIWA scoring with as needed Ativan Cont IV banana bag hydration. Will change to oral MOV and Thiamine after today's Banana bag When he is medically clear will request social work consult regarding alcohol abuse counseling and resources for help (7) V-tach Conclusion/Plan: A 4 beat run of wide-complex monomorphic tachycardia was seen on his resting EKG, this is consistent with V. tach This is likely related to his electrolyte abnormalities or he may have an alcoholic cardiomyopathy predisposing him to V. tach His troponin elevation may have been the cause of the VTach Plan: Remain on buying intern potassium, calcium and magnesium and replace if low Obtain an Echocardiogram (8) Hiccups Conclusion/Plan: Today we learned he does not have a new onset of diabetes, he has had DM for at least 2 years. I therefore suspect he may have diabetic gastroparesis which are causing the hiccups. Alternatively, his gastritis may be causing hiccups. Plan: Will treat with scheduled Reglan Will try to advance his diet today to see if he tolerates this
[2022-12-17] MEDS: METOCLOPRAMIDE 10 MG/2 ML VIAL IVP PRN (15:36)
[2022-12-17 16:52] LABS: POTASSIUM 3.4 mmol/L (3.5-4.5)
[2022-12-17] MEDS ORDERED: glipiZIDE 5 MG TABLET PO ONE (18:53)
[2022-12-17] MEDS: SODIUM CHLORIDE 0.9% 1,000 ML IV SCH (21:38)
[2022-12-17] MEDS: prednisoLONE 1% OPHTH DROPS 75 DROPS/5 ML BOTTLE EACHEYE SCH (21:51)
[2022-12-17] MEDS: INSULIN GLARGINE-YFGN 300 UNIT/3 ML PEN SUBQ SCH (22:00)
[2022-12-18] MEDS: SODIUM CHLORIDE FLUSH 0.9% 10 ML SYRINGE IVP SCH ×4 (00:51→23:51)
[2022-12-18 05:01] LABS: CREATININE 0.5 mg/dL (0.6-1.3)
[2022-12-18] MEDS: PROCHLORPERAZINE 10 MG/2 ML VIAL IVP PRN (05:58)
[2022-12-18] MEDS: SUCRALFATE 1 GM/10 ML UDC PO SCH ×3 (07:29→16:04)
[2022-12-18] MEDS: glipiZIDE 5 MG TABLET PO SCH (07:29)
[2022-12-18] MEDS: METOCLOPRAMIDE 10 MG/2 ML VIAL IVP PRN ×2 (07:59→19:56)
[2022-12-18 08:00] LABS: CALCIUM, IONIZED 1.11 mmol/L (1.15-1.33); VBG PH 7.479 (7.31-7.41)
[2022-12-18 08:03] LABS: MAGNESIUM 1.7 mg/dL (1.7-2.3)
[2022-12-18] MEDS: POTASSIUM CHLORIDE 20 MEQ TABLET PO SCH ×2 (08:17→09:28)
[2022-12-18] MEDS: SODIUM CHLORIDE FLUSH 0.9% 10 ML SYRINGE IVP PRN ×2 (08:18→11:14)
[2022-12-18] MEDS: THIAMINE 100 MG TABLET PO SCH (08:18)
[2022-12-18] MEDS: PANTOPRAZOLE 40 MG VIAL IVP SCH (08:18)
[2022-12-18] MEDS: prednisoLONE 1% OPHTH DROPS 75 DROPS/5 ML BOTTLE EACHEYE SCH ×2 (08:19→21:15)
[2022-12-18 08:21] LABS: HCT - HEMATOCRIT 29.8 % (42.0-52.0); HGB - HEMOGLOBIN 10.1 g/dL (14.0-18.0); MEAN CORPUSCULAR HEMOGLOBIN 31.6 pg (27.0-31.0); MEAN CORPUSCULAR HGB CONC 33.9 g/dL (32.0-36.0); MEAN CORPUSCULAR VOLUME 93.1 fL (80.0-94.0); MEAN PLATELET VOLUME 10.4 fL (7.4-11.4); RED BLOOD COUNT 3.2 10^6/uL (4.70-6.10); RED CELL DISTRIBUTION WIDTH 13.1 % (12.0-15.0); WHITE BLOOD COUNT 6.1 x10^3/uL (4.8-10.8)
[2022-12-18 08:42] LABS: % IRON SATURATION 25 % (20-50); IRON 48 ug/dL (50-212); TOTAL IRON BINDING CAPACITY 192 ug/dL (250-450); TRANSFERRIN 137 mg/dL (203-362)
[2022-12-18] MEDS ORDERED: MAGNESIUM OXIDE 400 MG TABLET PO ONE (08:56)
[2022-12-18] MEDS: POTASSIUM PHOSPHATE 21 MMOL in SODIUM CHLORIDE 0.9% 250 ML IV ONE ×2 (09:08→09:27)
[2022-12-18] MEDS: PRENATAL VITAMIN TABLET PO SCH (09:21)
[2022-12-18] MEDS: INSULIN LISPRO 300 UNIT/3 ML PEN SUBQ SCH ×4 (10:45→21:15)
[2022-12-18] MEDS: ONDANSETRON 4 MG/2 ML VIAL IVP PRN ×2 (11:13→16:24)
[2022-12-18] MEDS: CALCIUM CARBONATE CHEW 500 MG TABLET PO PRN ×3 (12:14→19:56)
--- NOTE | 2022-12-18 12:19 | PROVIDER PROGRESS NOTE ---
Assessment/Plan - Problem List (1) Hyperglycemia due to diabetes mellitus Assessment/Plan: Insulin drip has cleared the ketones. We learned that he has had diabetes for 20 years, andn he does not want to be on Insulin, which he was on 10 years ago, and also stopped using Metformin "because it stopped working". Plan: Will cont long-acting insulin plus sliding scale short acting insulin, start a diabetic diet, advancing as tolerated given the recurrence of nausea and abd pain Since we learned today that he has had diabetes for several years, diabetic education will be ordered, and Nutrition consult. He indicates he does not want to be on Insulin, which he was on 10 years ago. Will start Glipizide If he tolerates advancing his diet today and does not redevelop nausea and vomiting or worsening ketosis, he can be transferred out of the ICU later today. I anticipate discharge soon (2) Atrial flutter with rapid ventricular response Conclusion/Plan: There is no prior history of atrial fib or flutter in his EMR. We do not know his cardiac status as far as a possible alcoholic cardiomyopathy. His troponins have risen consistent with a Type 2 MT (demand) His TSH was checked to rule out hyperthyroidism, and came back normal at 2.47 Plan: Awaiting an Echo to rule out cardiomyopathy and/or enlarged atria The patient cannot currently receive anticoagulants for stroke prophylaxis because of his active GI bleed We will use either diltiazem pushes, beta-marilu doses (3) Type 2 MT Conclusion/Plan: Because of the atrial flutter and the V. tach, his troponins were cycled. They have more than doubled, going from 12 at admission>> 170>> 130>> 134 (all labs were reviewed). EKG was repeated today looking for changes. I personally interpreted this EKG. The EKG today shows sinus rhythm, rate 84, ventricular trigeminy, LVH voltage, diffuse T wave flattening consistent with ischemia. Since EKG from 12/16/2022 at 1336, the Aflutter is now absent. Since EKG from 12/16/2022 at 1322, it is similar. Plan: Obtain Echo I will start him on beta-blockers both for rate control and post MT treatment No ASA, due to acute GI bleed (4) Acute gastritis Conclusion/Plan: Likely related to his alcohol abuse. Yesterday he had no abdominal pain, no nausea and vomiting. Today he is nauseated and complains of a cough. There has been no vomiting today. His hiccups have returned Plan: Will advance diet as tolerated. No discharge until his diet is stable w/out N/V /pain Cont Protonix 40 mg IV twice daily, will transition to po BID when he is not nauseated Cont oral Carafate 4 times daily Follow his hemoglobin daily or every 12 hours Transfuse if hemoglobin under 7 Qualifiers: Gastritis type: alcoholic (5) UGI bleed Conclusion/Plan: No further coffee-ground emesis since since the episode in the ER at admission. Patient was never hemodynamically unstable and the hemoglobin has not dropped precipitously. No consult was requested for an EGD Plan: As in #4 (6) Alcohol abuse Conclusion/Plan: The patient stated he drinks 6 beers a day plus 6 shots of rum in [employer] drinks. His liver function tests show normal LFTs, MCV and INR. Plan: Continue CIWA scoring with as needed Ativan Cont IV banana bag hydration. Will change to oral MOV and Thiamine after today's Banana bag When he is medically clear will request social work consult regarding alcohol abuse counseling and resources for help (7) V-tach Conclusion/Plan: A 4 beat run of wide-complex monomorphic tachycardia was seen on his resting EKG, this is consistent with V. tach This is likely related to his electrolyte abnormalities or he may have an alcoholic cardiomyopathy predisposing him to V. tach His troponin elevation may have been the cause of the VTach. An Echocardiogram was done and showed [id number] with a Plan: Remain on health care sanitary technician potassium, calcium and magnesium and replace if low (8) Hiccups Conclusion/Plan: Today we learned he does not have a new onset of diabetes, he has had DM for at least 2 years. I therefore suspect he may have diabetic gastroparesis which are causing the hiccups. Alternatively, his gastritis may be causing hiccups. Plan: Will treat with scheduled Reglan Will try to advance his diet today to see if he tolerates this (9) DKA (diabetic ketoacidosis) Impression: RESOLVED Glucose was over 500 and serum ketones present but he was not acidotic. He said he has no Hx of DM yesterday. He has a normal lipase level and a normal- appearing pancreas by CT imaging. He was placed in the ICU and started on DKA protocol using an insulin drip. Serum ketones have slowly decreased from small down to negative today (all labs were reviewed). His A1c is 12.7, consistent with poor glucose control that is longstanding Plan: Will stop the insulin drip, and transition him to long-acting insulin plus sliding scale short acting insulin, start a diabetic diet Since we learned today that he has had diabetes for several years, diabetic education will be ordered, and Nutrition consult. He indicates he does not want to be on Insulin, which he was on 10 years ago. If he tolerates advancing his diet today and does not redevelop nausea and vomiting or worsening ketosis, he can be transferred out of the ICU later today - Current Meds Current Meds: Current Medications Generic Name Dose Route Start Last Admin Trade Name Freq PRN Reason Stop Dose Admin Glipizide 5 mg 12/18/22 07:30 12/18/22 07:29 Glipizide 5 Mg Tablet PO 5 mg 0730 MIGDALIA Administration Hydromorphone HCl 0.5 mg 12/17/22 11:47 12/18/22 05:59 Hydromorphone 0.5 Mg/0.5 Ml Syringe IVP 0.5 mg Q4H PRN Administration Pain 8 to 10 Sodium Chloride 1,000 mls @ 40 mls/hr 12/17/22 19:00 12/17/22 21:38 Normal Saline 0.9% IV 40 mls/hr .Q25H MIGDALIA Administration Potassium Phosphate 21 mmol/ 257 mls @ 42.833 mls/hr 12/18/22 08:13 12/18/22 09:27 Sodium Chloride IV 12/18/22 14:12 42.833 mls/hr ONCE ONE Administration Insulin Glargine-yfgn 10 unit 12/17/22 21:00 12/17/22 22:00 Insulin Glargine-Yfgn 300 Unit/3 Ml Pen SUBQ 10 unit QPM MIGDALIA Administration Insulin Human Lispro 1 - 5 unit 12/17/22 12:00 12/18/22 10:45 Insulin Lispro 300 Unit/3 Ml Pen SUBQ Not Given 0800,1200,1700,2100 MIDGALIA Protocol Metoclopramide HCl 5 mg 12/17/22 11:43 12/18/22 07:59 Metoclopramide 10 Mg/2 Ml Vial IVP 5 mg Q6HR PRN Administration Hiccups Ondansetron HCl 4 mg 12/16/22 18:26 12/18/22 11:13 Ondansetron 4 Mg/2 Ml Vial IVP 4 mg Q4HR PRN Administration Nausea / Vomiting Pantoprazole Sodium 40 mg 12/16/22 21:00 12/18/22 08:18 Pantoprazole 40 Mg Vial IVP 40 mg BID MIGDALIA Administration Prednisolone 1 drops 12/17/22 21:00 12/18/22 08:19 Prednisolone 1% Ophth Drops 75 Drops/5 Ml Bottle EACHEYE 1 drops BID MIGDALIA Administration Multivit/Folic Acid/Iron 1 tab 12/18/22 09:00 12/18/22 09:21 Vitamin Tablet PO 1 tab DAILYWM MIGDALIA Administration Prochlorperazine Edisylate 10 mg 12/16/22 18:26 12/18/22 05:58 Prochlorperazine 10 Mg/2 Ml Vial IVP 10 mg Q6HR PRN Administration Nausea / Vomiting Sodium Chloride 10 ml 12/17/22 01:00 12/18/22 08:18 Sodium Chloride Flush 0.9% 10 Ml Syringe IVP 10 ml 0100,0900,1700 MIGDALIA Administration Sodium Chloride 10 ml 12/16/22 18:26 12/18/22 11:14 Sodium Chloride Flush 0.9% 10 Ml Syringe IVP 10 ml PRN PRN Administration NEEDED PER PROVIDER ORDERS Sucralfate 1 gm 12/16/22 22:00 12/18/22 07:29 Sucralfate 1 Gm/10 Ml Udc PO 1 gm 0700,1100,1600,2200 MIGDALIA Administration Thiamine HCl 100 mg 12/18/22 09:00 12/18/22 08:18 Thiamine 100 Mg Tablet PO 100 mg DAILY MIGDALIA Administration - Lab Result Fish Bone Diagrams: 12/19/22 05:45 12/19/22 05:45 - Additional Planning My Orders: My Active Orders 12/17/22 Lunch DIET [Soft Mechanical Diet] [DIET] 12/17/22 11:43 Blood Glucose Checks - Eating [RC] 0800,1200,1700,2100 Metoclopramide Inj [Reglan Inj] 5 mg IVP Q6HR PRN 12/17/22 11:47 HYDROmorphone 0.5MG SYRINGE [Dilaudid 0.5MG Syringe] 0.5 mg IVP Q4H PRN 12/17/22 12:00 Insulin Lispro [Humalog Kwikpen U-100] 1 - 5 unit SUBQ 0800,1200,1700,2100 12/17/22 19:00 Sodium Chloride 0.9% [Normal Saline 0.9%] 1,000 ml IV 40 mls/hr 12/17/22 21:00 Insulin Glargine-Yfgn [Semglee] 10 unit SUBQ QPM prednisoLONE 1% OPHTH DROPS [Pred Forte 1% Ophth Drops] 1 drops EACHEYE BID 12/18/22 07:30 glipiZIDE [Glucotrol] [place] [address]/18/22 08:09 Calcium Carbonate [Tums] 500 mg PO QID PRN 12/18/22 08:13 Potassium Phosphate 21 mmol Sodium Chloride 0.9% [Normal Saline 0.9%] 250 ml IV ONCE 12/18/22 09:00 Vitamin [Trinatal Rx 1] 1 tab PO DAILYWM Thiamine [Vitamin B-1] 100 mg PO DAILY 12/18/22 11:51 Transfer [Admit \\ Transfer \\ Status] [RC] .ONCE 12/18/22 11:52 Telemetry- [RC] Q4HR 12/18/22 16:00 HGB - HEMOGLOBIN [HEME] Timed 12/18/22 17:00 metFORMIN [Glucophage] 500 mg PO BIDWM 12/19/22 05:00 BMP - BASIC METABOLIC PANEL [CHEM] DAILYLAB CALCIUM [CHEM] DAILYLAB CBC W/O DIFF (HEMOGRAM) [HEME] DAILYLAB MAGNESIUM [CHEM] DAILYLAB PHOSPHORUS [CHEM] DAILYLAB Subjective - Subjective Patient Reports: Abdominal Pain, Nausea (N/V and abd pain have returned) Objective Vital Signs: Vital Signs - 24 hr 12/17/22 12/17/22 12/17/22 13:00 14:00 15:00 Temperature Heart Rate [ 80 73 76 Monitoring electrodes] Respiratory 17 22 12 Rate Blood Pressure Blood Pressure 105/65 91/60 108/63 [Right Brachial artery] O2 Saturation 100 96 98 12/17/22 12/17/22 12/17/22 16:00 17:00 18:00 Temperature Heart Rate [ 97 82 89 Monitoring electrodes] Respiratory 24 16 12 Rate Blood Pressure Blood Pressure 115/67 152/80 H [Right Brachial artery] O2 Saturation 97 96 100 12/17/22 12/17/22 12/17/22 19:00 20:00 21:00 Temperature 37.0 C Heart Rate [ 87 85 77 Monitoring electrodes] Respiratory 17 20 16 Rate Blood Pressure Blood Pressure 132/82 H 151/84 H 151/79 H [Right Brachial artery] O2 Saturation 99 99 99 12/17/22 12/17/22 12/17/22 21:46 22:00 23:00 Temperature Heart Rate [ 71 71 Monitoring electrodes] Respiratory 19 18 Rate Blood Pressure 132/82 H Blood Pressure 122/75 123/69 [Right Brachial artery] O2 Saturation 95 98 12/18/22 12/18/22 12/18/22 00:00 01:00 02:00 Temperature Heart Rate [ 76 82 74 Monitoring electrodes] Respiratory 22 20 21 Rate Blood Pressure Blood Pressure 149/89 H 149/92 H 122/77 [Right Brachial artery] O2 Saturation 98 99 97 12/18/22 12/18/22 12/18/22 03:00 04:00 05:00 Temperature 36.9 C Heart Rate [ 71 72 76 Monitoring electrodes] Respiratory 23 20 17 Rate Blood Pressure Blood Pressure 132/79 H 135/71 H 141/85 H [Right Brachial artery] O2 Saturation 99 97 99 12/18/22 12/18/22 12/18/22 06:00 07:00 08:00 Temperature 36.7 C Heart Rate [ 83 79 92 Monitoring electrodes] Respiratory 23 16 19 Rate Blood Pressure Blood Pressure 136/61 H 101/60 135/78 H [Right Brachial artery] O2 Saturation 96 97 100 12/18/22 12/18/22 10:00 11:00 Temperature Heart Rate [ 77 82 Monitoring electrodes] Respiratory 16 10 L Rate Blood Pressure Blood Pressure 114/73 170/91 H [Right Brachial artery] O2 Saturation 99 99 Oxygen O2 Source Room air I&O (Last 24 Hrs): Intake and Output Totals x24h 12/16/22 12/17/22 12/18/22 23:59 23:59 23:59 Intake Total 2129.525 9751.016 840 Output Total 910 1105 2000 Balance 9832.026 3763.016 -1160 General: Alert, Oriented x3 HEENT: PERRLA, Other (Poor dentition) Neck: Supple, No JVD Neuro: Alert, Non Focal Cardiovascular: Regular rate, No murmurs Respiratory: No respiratory distress, Breath sounds nml Abdomen: Normal bowel sounds, Soft, No tenderness Extremities: No clubbing, No edema, No tenderness/swelling Skin: No rashes - Results Results: Laboratory Results WBC 6.1 x10^3/uL (4.8-10.8) 12/18/22 06:30 RBC 3.20 10^6/uL (4.70-6.10) L 12/18/22 06:30 Hgb 10.1 g/dL (14.0-18.0) L 12/18/22 06:30 Hct 29.8 % (42.0-52.0) L 12/18/22 06:30 MCV 93.1 fL (80.0-94.0) 12/18/22 06:30 MCH 31.6 pg (27.0-31.0) H 12/18/22 06:30 MCHC 33.9 g/dL (32.0-36.0) 12/18/22 06:30 RDW 13.1 % (12.0-15.0) 12/18/22 06:30 Plt Count 189 10^3/uL (130-450) 12/18/22 06:30 MPV 10.4 fL (7.4-11.4) 12/18/22 06:30 Neut # (Auto) 9.6 10^3/uL (1.5-6.6) H 12/16/22 13:42 Lymph # (Auto) 1.0 10^3/uL (1.5-3.5) L 12/16/22 13:42 Mcleod # (Auto) 0.9 10^3/uL (0.0-1.0) 12/16/22 13:42 Eos # (Auto) 0.0 10^3/uL (0.0-0.7) 12/16/22 13:42 Baso # (Auto) 0.0 10^3/uL (0.0-0.1) 12/16/22 13:42 Absolute Nucleated RBC 0.00 x10^3/uL 12/16/22 13:42 Nucleated RBC % 0.0 /100WBC 12/16/22 13:42 PT 12.5 secs (9.9-12.6) 12/16/22 13:42 INR 1.1 (0.8-1.2) 12/16/22 13:42 APTT 25.2 secs (24.9-33.3) 12/16/22 13:42 VBG pH 7.479 (7.31-7.41) H 12/18/22 07:54 VBG pCO2 38.7 mmHg (41-51) L 12/16/22 13:42 VBG pO2 39.9 mmHg (25-47) 12/16/22 13:42 VBG HCO3 23.9 mmol/L (23-28) 12/16/22 13:42 VBG Total CO2 25.1 mmol/L (24-29) 12/16/22 13:42 VBG O2 Saturation 75.9 % (60-80) 12/16/22 13:42 VBG Base Excess -0.5 mmol/L (-2 - +2) 12/16/22 13:42 Ionized Calcium 1.11 mmol/L (1.15-1.33) L 12/18/22 07:54 Sodium 137 mmol/L (135-145) 12/18/22 04:30 Potassium 3.0 mmol/L (3.5-4.5) L 12/18/22 04:30 Chloride 107 mmol/L (101-111) 12/18/22 04:30 Carbon Dioxide 28 mmol/L (21-32) 12/18/22 04:30 Anion Gap 2.0 (6-13) L 12/18/22 04:30 BUN 10 mg/dL (6-20) 12/18/22 04:30 Creatinine 0.5 mg/dL (0.6-1.3) L 12/18/22 04:30 Estimated GFR (MDRD) 169 (>89) 12/18/22 04:30 Glucose 120 mg/dL (74-104) H 12/18/22 04:30 POC Whole Bld Glucose 206 mg/dL (70 - 100) H 12/18/22 12:02 Estimat Average Glucose 318 mg/dL (70-100) H 12/16/22 18:08 Hemoglobin A1c % 12.7 % (4.27-6.07) H 12/16/22 18:08 Calcium 8.0 mg/dL (8.5-10.3) L 12/18/22 04:30 Phosphorus 2.0 mg/dL (2.5-5.0) L 12/18/22 04:30 Magnesium 1.7 mg/dL (1.7-2.3) 12/18/22 04:30 Iron 48 ug/dL (50-212) L 12/18/22 07:54 TIBC 192 ug/dL (250-450) L 12/18/22 07:54 % Saturation 25 % (20-50) 12/18/22 07:54 Transferrin 137 mg/dL (203-362) L 12/18/22 07:54 Total Bilirubin 0.4 mg/dL (0.2-1.0) 12/17/22 04:54 Direct Bilirubin < 0.10 mg/dL (0.03-0.18) 12/17/22 04:54 AST 10 IU/L (10-42) 12/17/22 04:54 ALT 5 IU/L (10-60) L 12/17/22 04:54 Alkaline Phosphatase 68 IU/L (42-121) 12/17/22 04:54 Troponin I High Sens 134.4 ng/L (2.3-19.7) H* 12/17/22 04:54 B-Natriuretic Peptide 80 pg/mL (5-100) 12/16/22 13:45 Total Protein 5.2 g/dL (6.4-8.9) L 12/17/22 04:54 Albumin 3.0 g/dL (3.2-5.5) L 12/17/22 04:54 Globulin 2.2 g/dL (2.1-4.2) 12/17/22 04:54 Albumin/Globulin Ratio 1.3 (1.0-2.2) 12/16/22 18:39 Lipase 10 U/L (11-82) L 12/16/22 13:42 Vitamin B12 316 pg/mL (180-914) 12/17/22 08:52 Folate 10.7 ng/mL (5.90 - >24.8) 12/17/22 08:52 TSH 2.47 uIU/mL (0.34-5.60) 12/17/22 04:54 Urine Color YELLOW 12/16/22 16:06 Urine Clarity CLEAR (CLEAR) 12/16/22 16:06 Urine pH 5.5 PH (5.0-7.5) 12/16/22 16:06 Ur Specific [place] 1.010 (1.002-1.030) 12/16/22 16:06 Urine Protein NEGATIVE mg/dL (NEGATIVE) 12/16/22 16:06 Urine Glucose (UA) >=1000 mg/dL (NEGATIVE) H 12/16/22 16:06 Urine Ketones >=80 mg/dL (NEGATIVE) H 12/16/22 16:06 Urine Occult Blood TRACE-INTA (NEGATIVE) 12/16/22 16:06 Urine Nitrite NEGATIVE (NEGATIVE) 12/16/22 16:06 Urine Bilirubin NEGATIVE (NEGATIVE) 12/16/22 16:06 Urine Urobilinogen 0.2 (NORMAL) E.U./dL (NORMAL) 12/16/22 16:06 Ur Leukocyte Esterase NEGATIVE (NEGATIVE) 12/16/22 16:06 Ur Microscopic Review NOT INDICATED 12/16/22 16:06 Urine Culture Comments NOT INDICATED 12/16/22 16:06 Nasal Screen MRSA (PCR) NEGATIVE (NEGATIVE) 12/16/22 20:13 Urine Opiates Screen NEGATIVE (NEGATIVE) 12/16/22 16:06 Ur Oxycodone Screen NEGATIVE (NEGATIVE) 12/16/22 16:06 Urine Methadone Screen NEGATIVE (NEGATIVE) 12/16/22 16:06 Ur Propoxyphene Screen NEGATIVE (NEGATIVE) 12/16/22 16:06 Ur Barbiturates Screen NEGATIVE (NEGATIVE) 12/16/22 16:06 Ur Tricyclics Screen NEGATIVE (NEGATIVE) 12/16/22 16:06 Ur Phencyclidine Scrn NEGATIVE (NEGATIVE) 12/16/22 16:06 Ur Amphetamine Screen NEGATIVE (NEGATIVE) 12/16/22 16:06 U Methamphetamines Scrn NEGATIVE (NEGATIVE) 12/16/22 16:06 U Benzodiazepines Scrn NEGATIVE (NEGATIVE) 12/16/22 16:06 Urine Cocaine Screen NEGATIVE (NEGATIVE) 12/16/22 16:06 U Cannabinoids Screen NEGATIVE (NEGATIVE) 12/16/22 16:06 Ethyl Alcohol < 10.0 mg/dL 12/16/22 18:39 Serum Ketones NEGATIVE (NEGATIVE) 12/17/22 08:52
[2022-12-18] MEDS: metFORMIN 500 MG TABLET PO SCH (16:40)
[2022-12-18] MEDS: PANTOPRAZOLE 40 MG TABLET PO SCH (21:12)
[2022-12-18] MEDS: INSULIN GLARGINE-YFGN 300 UNIT/3 ML PEN SUBQ SCH (21:16)
[2022-12-18] MEDS: SODIUM CHLORIDE 0.9% 1,000 ML IV SCH (21:19)
[2022-12-19] MEDS: SODIUM CHLORIDE FLUSH 0.9% 10 ML SYRINGE IVP SCH ×2 (00:03→08:12)
[2022-12-19 05:51] LABS: HCT - HEMATOCRIT 30.8 % (42.0-52.0); HGB - HEMOGLOBIN 11.1 g/dL (14.0-18.0); MEAN CORPUSCULAR HEMOGLOBIN 32.1 pg (27.0-31.0); MEAN PLATELET VOLUME 9.1 fL (7.4-11.4); RED BLOOD COUNT 3.46 10^6/uL (4.70-6.10); RED CELL DISTRIBUTION WIDTH 12.4 % (12.0-15.0); WHITE BLOOD COUNT 4.7 x10^3/uL (4.8-10.8)
[2022-12-19] MEDS: CALCIUM CARBONATE CHEW 500 MG TABLET PO PRN (05:59)
[2022-12-19 06:07] LABS: CALCIUM 8.5 mg/dL (8.5-10.3); CREATININE 0.5 mg/dL (0.6-1.3); MAGNESIUM 1.7 mg/dL (1.7-2.3); PHOSPHORUS 2.7 mg/dL (2.5-5.0); POTASSIUM 3.3 mmol/L (3.5-4.5)
[2022-12-19] MEDS: prednisoLONE 1% OPHTH DROPS 75 DROPS/5 ML BOTTLE EACHEYE SCH (08:07)
[2022-12-19] MEDS: glipiZIDE 5 MG TABLET PO SCH (08:08)
[2022-12-19] MEDS: PANTOPRAZOLE 40 MG TABLET PO SCH (08:08)
[2022-12-19] MEDS: PRENATAL VITAMIN TABLET PO SCH (08:08)
[2022-12-19] MEDS: metFORMIN 500 MG TABLET PO SCH (08:09)
[2022-12-19] MEDS: INSULIN LISPRO 300 UNIT/3 ML PEN SUBQ SCH ×2 (08:09→11:50)
[2022-12-19] MEDS: THIAMINE 100 MG TABLET PO SCH (08:09)
[2022-12-19] MEDS: POTASSIUM CHLOR 10 MEQ/100 ML 10 MEQ/100 ML BAG IV SCH ×3 (09:00→13:10)
[2022-12-19] MEDS ORDERED: METOCLOPRAMIDE 10 MG TABLET PO PRN (11:49)
--- NOTE | 2022-12-19 13:49 | Discharge Plan ---
Discharge Plan Problem Reviewed?: Yes Disposition: Home, Self Care Condition: Fair Prescriptions: Ferrous Gluconate 324 mg PO DAILY #30 tablet glipiZIDE [Glucotrol] 5 mg PO BID #60 tab Metformin HCl [Metformin ER Osmotic] 1,000 mg PO DAILY #120 tab Pantoprazole [Protonix] 40 mg PO BID #60 tab Metoclopramide [Reglan] 10 mg PO ACHS PRN #60 tab PRN Reason: Nausea / Vomiting Calcium Carbonate [Tums (Calcium Carbonate 500mg)] 500 mg PO QID PRN #120 tab PRN Reason: Heartburn Thiamine [Vitamin B-1] 100 mg PO DAILY #30 tab Diet: Diabetic Activity Restrictions: Activity as Tolerated Shower Restrictions: No Instruction Topics: Diabetes Alcohol Consumption, Diabetes Care Home Complications, Diabetes Type 2 Oral Meds, Diabetes Healthy Meals, Gastritis Health Concerns: You were hospitalized because you were vomiting blood from your stomach. We found that you have gastritis (this is severe inflammation of the stomach lining, almost as bad as having a bleeding ulcer). You have been on a medicine (Protonix) to heal the stomach gastritis. It will take 3 to 4 weeks for the stomach to heal, when you take the Protonix medicine prescribed, and avoid acidy foods, and if you stop drinking so much alcohol. The hiccups need treatment with a medicine called Reglan which I am prescribing for you. The acid pain needs treatment with taking either Tums or Mylanta, plus the Protonix. The anemia needs an Iron pill daily, which I am prescribing for you. We did do a chest x-ray that showed you have no pneumonia or bronchitis, so the cough is caused by acid irritation of your throat after your vomiting. You need to be more serious about treating your diabetes that you have had for decades. The complications of diabetes can be serious: you could have a heart attack, a stroke, kidney failure, and the diabetes probably added to your worsening eyesight. You are being prescribed glipizide to take twice a day for the diabetes, and it would be recommended that you go back to taking Metformin. Both of these medicines were prescribed for you. You should also follow a better diabetic diet and decrease your alcohol intake, since alcohol is a type of sugar and it raises your blood sugar severely. Stop drinking alcohol excessively. You went through alcohol withdrawal here and needed medicines for that. You are being prescribed Thiamine medication which helps your body after you have drink so much alcohol. All the above prescriptions were electronically sent to your [facility] pharmacy in [place]. You need to establish care with a doctor and get follow-up treatment and to get your medicines refilled. Plan of Treatment: As above. Care Goals: Improvement in symptoms and stabilization are the goals. Assessment: Since I had to repeat these instructions for you several times, they are written down here as a reminder for you, and also you can show these instructions to your 82-year-old lady friend, that you live with. Additional Instructions or Follow Up instructions: If you have new or worsening symptoms, call your Primary Care Provider for advice, or go to an Urgent Care Center, or come to the ER. No Smoking: If you smoke, Please STOP! Call for help.
--- NOTE | 2022-12-19 14:02 | DISCHARGE SUMMARY ---
Discharge Summary Admit Date: 12/16/22 Discharge Date: 12/19/22 Discharging Provider: Dr Aarti Foster Primary Care Provider: Unknown Condition at Discharge: Fair Discharge Disposition: 01 Home, Self Care - HPI History of Present Illness: This is a 62-year-old male of [place] background who states he takes no meds, has a history of alcohol abuse; he admits to drinking 6 beers/day and 3-4 rum and Coke drinks per day. He presented to the ER today with complaints of 2 weeks of vague abdominal pain, worse with eating, then 2 days of nausea and vomiting and no liquids would stay down today. He reported occasional coffee ground emesis these past 2 days and then had witnessed coffee-ground emesis in the ER. He underwent CT of the abdomen pelvis that showed inflammation of the distal esophagus and gastritis present, no evidence of esophageal varices or liver enlargement. His initial heart rhythm was sinus with monomorphic, non- sustained VTach (4-beats) and then he went into atrial flutter at a rate of 160. He was given diltiazem push and converted back to sinus rhythm. His labs were remarkable for a serum glucose of 514, and he said he did not know he had diabetes mellitus. He has a normal serum pH of 7.49, but small serum ketones present. Lipase 10. Normal transaminases and INR and MCV. His Hgb is 13.9. Troponin 12.4. The patient was given IV insulin and the next glucose came down to 394. The description of the pancreas on the abdominal CT image was unremar kable, with no phlegmon, necrosis or pancreatitis. The ED provider spoke to me about this patient. He will be admitted to the ICU for managing new onset DM, Diabetic ketosis, and paroxysmal atrial flutter with RVR. - HOSPITAL COURSE Hospital Course: (1) Diabetic ketosis Glucose was over 500 and serum ketones were present but he was not acidotic. He said he has no Hx of DM. He was placed in the ICU and started on DKA protocol using an insulin drip. Serum ketones slowly corrected. His A1c came back at 12.7 the next day, and we learned that he has had diabetes for >20 years, and does not want to be on Insulin, which he was on 10 years ago, and that he also stopped using Metformin "when it was not working anymore". (2) Hyperglycemia due to diabetes mellitus Insulin treatment improved his glu but he refused to be discharged on Insulin. He was started on Glipizide BID and urged to take that and resume Metformin BID, which was also prescribed. He said he could not do fingerstick checks because his eyesight was bad. He was urged to [place] [facility] and be more compliant with DM management, which included less alcohol intake. (3) Atrial flutter with rapid ventricular response His TSH was checked to rule out hyperthyroidism, and came back normal at 2.47. His troponins lex consistent with a Type 2 SC (demand ishemia). He received pushes of B-blockers and Cardizem and converted, and remained in sinus rhythm. The patient could not receive anticoagulants for stroke prophylaxis, because of his active GI bleed. He was advised to get a PCP and have hospital follow up and to be compliant with DM treatment. (4) Type 2 SC Because of the atrial flutter and the V. tach, his troponins were cycled. They more than doubled, going from 12 at admission>> 170>> 130. A repeat EKG showed sinus rhythm, ventricular trigeminy, LVH voltage, and new diffuse T wave flattening consistent with ischemia. He was started on beta-blockers both for rate control and post SC treatment, but no ASA, due to acute GI bleed. His Echo was done and showed no LV wall motion abnormalities, LVH and a normal LVEF. Thus, this was demand ischemia from tachycardia and Diabetic ketosis. (5) Acute gastritis Likely related to his alcohol abuse. He was put on empiric Protonix 40 mg IV BID and Carafate QID, and his diet was advanced. His Hgb remained stable. He did not want to take the Carafate and was discharged on Protonix po BID and Reglan. (6) UGI bleed No further coffee-ground emesis occurred after the episode in the ER at admission. Patient was never hemodynamically unstable and the hemoglobin did not drop, as such, no consult was requested for an EGD, and he was treated with and discharged on Protonix. (7) Alcohol abuse The patient stated he drinks 6 beers a day plus 6 shots of rum in Rum & Coke drinks. His liver function tests showed normal LFTs, MCV and INR. He was monitoored with CIWA scoring and prn iv Ativan, and received IV banana bag hydration then changed to oral MOV and Thiamine, and discharged on these. (8) V-tach He had short runs of V. tach, likely related to his electrolyte abnormalities or possibly from alcoholic cardiomyopathy predisposing him to V. tach, or his Type 2 SC and troponin elevation may have been the cause of the VTach. An Echocardiogram was done and showed normal LVEF. (9) Hiccups When we learned he did not have a new onset of diabetes, he has had DM for at least 20 years, I suspected he may have diabetic gastroparesis adding to n/v and hiccups. Alternatively, his gastritis may be causing hiccups. He was treated with scheduled Reglan which helped and he was discharged with a new Reglan prescription. - ALLERGIES Allergies/Adverse Reactions: Allergies Allergy/AdvReac Type Severity Reaction Status Date / Time No Known Drug Allergies Allergy Verified 07/04/18 10:29 - MEDICATIONS Home Medications: Ambulatory Orders Medication Instructions Recorded Confirmed Prednisolone Acetate [Pred Mild] 1 drops .ROUTE TID 12/17/22 12/17/22 Calcium Carbonate [Tums (Calcium 500 mg PO QID PRN #120 tab 12/19/22 Carbonate 500mg)] Ferrous Gluconate 324 mg PO DAILY #30 tablet 12/19/22 Metformin HCl [Metformin ER 1,000 mg PO BID #120 tab 12/19/22 Osmotic] Metoclopramide [Reglan] 10 mg PO ACHS PRN #60 tab 12/19/22 Pantoprazole [Protonix] 40 mg PO BID #60 tab 12/19/22 Thiamine [Vitamin B-1] 100 mg PO DAILY #30 tab 12/19/22 glipiZIDE [Glucotrol] 5 mg PO BID #60 tab 12/19/22 - PHYSICAL EXAM AT DISCHARGE General Appearance: positive: No acute distress, Alert Eyes Bilateral: positive: Normal inspection, EOMI ENT: positive: Other (Missing all 8 incisors, other teeth in poor condition) Neck: positive: Nml inspection, No JVD Respiratory: positive: No respiratory distress, Breath sounds nml Cardiovascular: positive: Regular rate & rhythm, No murmur Abdomen: positive: Non-tender, No organomegaly, Nml bowel sounds, No distention Skin: positive: Warm, Dry Extremities: positive: Non-tender, No pedal edema Neurologic/Psychiatric: positive: Oriented x3, CN's nml (2-12), Motor nml - LABS Result Diagrams: 12/19/22 05:45 12/19/22 05:45 - DIAGNOSTIC IMAGING Diagnostic Imaging Results: Final report reviewed - FOLLOW UP Follow Up: He needs to get a PCP. - TIME SPENT Time Spent in Discharge (Minutes): 45
[2022-12-19 15:03] VITALS: BP 124/73; O2SAT 96
== END 2022-12-19 16:29 | disposition home or self-care (01) | DRG 637 ==
LOC: EDUNIT# → ED 13:17 → ICU 18:26 → MS2 12-18 14:46
PROVIDERS: ADMIT Internal Medicine; ATTEND Internal Medicine
DX: E11.10 Type 2 diabetes mellitus with ketoacidosis without coma (principal); K29.01 Acute gastritis with bleeding; I24.89 Other forms of acute ischemic heart disease; I48.92 Unspecified atrial flutter; I47.20 Ventricular tachycardia, unspecified; F10.139 Alcohol abuse with withdrawal, unspecified; E11.43 Type 2 diabetes mellitus with diabetic autonomic (poly)neuropathy; E11.65 Type 2 diabetes mellitus with hyperglycemia; K31.84 Gastroparesis; I48.0 Paroxysmal atrial fibrillation; N28.89 Other specified disorders of kidney and ureter
CPT/HCPCS: 36415; 71045; 74177; 80048; 80053; 80076; 80306; 80320; 81003; 82009; 82330; 82607; 82746; 82803; 83036; 83540; 83690; 83735; 83880; 84100; 84132; 84443; 84466; 84484; 85014; 85018; 85025; 85027; 85610; 85730; 87150; 93005; 93306; 96361; 96374; 96375; 96376; 99291; A9270; J1170; J1815; J2060; J2765; J3411; Q9967; 81001; 82947; 87086